=== PATIENT | female | born 1945 | race Caucasian/White ===

== ENCOUNTER 2019-11-03 18:10 | Emergency (ER) | payer MEDICARE, OTHER, MEDICAID, SELFPAY ==
[2019-11-03 18:20] VITALS: BP 123/45; RESP 20; TEMP 36.7; O2SAT 95; BMI 33.3
--- NOTE | 2019-11-03 18:52 | ED_ITS ---
Entered by Mora Lou, acting as scribe for Shayla Guzman MD, [facility] [place] HPI - Altered Mental Status General: Chief Complaint: Altered Mental Status Stated Complaint: FALL HIT HEAD Time Seen by Provider: 11/03/19 18:50 Source: patient Mode of arrival: EMS Limitations: no limitations History of Present Illness: HPI narrative: 73 yo Female presents to ED with complaint of pain in her left side. Per usp report, the patient fell and hit her head today. The patient is a nursing home resident of a [place] where she is a resident for dementia MD complaint: altered mental status and confusion Onset (ago): unknown Context: other (dementia/fall) Associated symptoms: Reports no associated symptoms Review of Systems General: Reports: 10 or more systems reviewed and unremarkable except in HPI and below Const: Denies: fever, chills or body aches Eyes: Denies: change in vision, blurry vision or blind spots ENMT: Denies: throat pain, enlarged tonsils, painful swallowing, hoarseness, mouth pain or swelling of lips/tongue Card: Denies: chest pain, palpitations, irregular heart rhythm, edema or swelling of feet/ankles Resp: Denies: shortness of breath, productive cough or non-productive cough GI: Reports: abdominal pain; Denies: nausea or vomiting : Denies: flank pain, difficulty urinating, painful urination, urinary frequency, urinary urgency or urinary hesitancy Musc: Denies: neck pain, back pain, extremity pain, extremity swelling or joint pain Skin/Breast: Denies: rash, itching or redness Neuro: Denies: headache, numbness in extremities or weakness in extremities Endo: Denies: excessive urination, excessive thirst or tired all the time Physical Exam Const: COMMON NORMALS: no apparent distress, average body habitus, oriented x3, no limitations, healthy appearing, alert and well nourished HENMT: COMMON NORMALS: normocephalic, head/scalp atraumatic and moist oral mucous membranes HEAD & SCALP: normocephalic, atraumatic and scalp tenderness (Knot behind left ear-4 cm) Eye: COMMON NORMALS: PERRL, EOMs intact bilaterally, conjunctivae normal and no scleral icterus CONJUNCTIVA: Yes conjunctivae normal PUPIL: Yes PERRL Neck/C-Spine: COMMON NORMALS: full ROM, supple, no meningeal signs, no JVD and no carotid bruits Chest: COMMONS NORMALS: inspection of chest normal and palpation of chest normal CHEST: Yes tenderness (left chest wall) Resp: COMMON NORMALS: normal respiratory effort, no retractions, no use of accessory muscles, clear to auscultation bilaterally and percussion normal AUSCULTATION: clear to auscultation bilaterally PERCUSSION: percussion normal Cardio: COMMON NORMALS: no JVD, regular rate, regular rhythm, S1 normal heart sound, S2 normal heart sound, no gallops, no clicks, no murmurs, no rub and peripheral pulses 2+ throughout RATE: regular rate RHYTHM: regular rhythm HEART SOUNDS: S1 normal, S2 normal and murmur PERIPHERAL PULSES: pulses 2+ throughout GI: COMMON NORMALS: normal to inspection, nondistended, normoactive bowel sounds, soft to palpation, non-tender, no hepatosplenomegaly, no masses and no bruits PALPATION: Yes soft, Yes tender (left abdomen-generalized) and Yes no hepatosplenomegaly : COMMON NORMALS: Yes no CVA tenderness BLADDER/KIDNEY EXAM: Yes no CVA tenderness Back/Pelvis: COMMON NORMALS: no CVA tenderness Extremity: COMMON NORMALS: normal to inspection, full ROM, normal capillary refill, no calf tenderness and no pedal edema Neuro: COMMON NORMALS: oriented x3 SENSORIUM/ORIENTATION: Yes alert MENINGEAL SIGNS: Yes no meningeal signs Skin: COMMON NORMALS: no rashes or lesions noted, no wounds, skin turgor normal, no jaundice, no petechiae and no mottling GENERAL SKIN EXAM: no rashes or lesions noted and turgor normal Course Vital Signs: Vital signs: Vital Signs Temperature 98.0 F 11/03/19 18:20 Pulse Rate 77 11/03/19 20:56 Respiratory Rate 18 11/03/19 20:56 Blood Pressure 123/45 11/03/19 20:56 Pulse Oximetry 95 11/03/19 20:56 MDM - Altered Mental Status MDM Narrative: Medical decision making narrative: 73-year-old female patient who is a resident of a local [facility]p presented to the emergency department following a fall. She hit her head but no loss of consciousness. Evaluation in the emergency department including head CT, C-spine CT, chest abdomen and pelvis CT and an x-ray of her left shoulder were all negative for acute fracture or dislocation. No intracranial hemorrhage. She is discharged home back to the usp with no new orders. Imaging Data^: CT C-Spine: Radiologist's impression: [address] [place] [address] CT Scan Report Signed Patient: Stephanie Sanchez #: [id number] : 1946Acct#:[id number] Age/Sex: 73 / FADM Date: 11/03/19 Loc: ERRoom/Bed: Attending Dr: Ordering Provider/Ordering MD: Shayla Guzman MD, [facility] [place] Date of Service: 11/03/19 Procedure(s): CT cervical spin wo con* [id number] Accession Number(s): [id number] Report Number: [id number] PROCEDURE INFORMATION: Exam: CT Cervical Spine Without Contrast Exam date and time: 11/03/2019 7:16 PM Age: 73 years old Clinical indication: Injury or trauma; Fall; Initial encounter; Blunt trauma TECHNIQUE: Imaging protocol: Computed tomography images of the cervical spine without contrast. Total DLP: 872.66 mGy-cm Radiation optimization: All CT scans at this facility use at least one of these dose optimization techniques: automated exposure control; mA and/or kV adjustment per patient size (includes targeted exams where dose is matched to clinical indication); or iterative reconstruction. COMPARISON: No relevant prior studies available. FINDINGS: Vertebrae: No acute fracture. Normal alignment. Prominent degenerative changes are noted with disc space narrowing and endplate osteophytes with sclerosis throughout the spine but greatest at C5-C6 and C6-C7. Degenerative anteriorlisthesis of C4 on C5 is noted. Discs/Spinal canal/Neural foramina: There is kavx-yj-yekjktfy narrowing of the central canal and foramina at C5-C6 and C6-C7 due to broad-based disc bulges and posterior endplate osteophytes. Soft tissues: Unremarkable. Lungs: Lung apices are normal. CT/CT cervical spin wo con* [id number] IMPRESSION: 1. No acute findings. 2. Degenerative changes are noted as above. Radiation Dose CTDIVOL = (mGy): DLP = 872.66 (mGy-cm) Dictated By:Veronica Zhang Signed By:Orion Zhang Date/Time:11/03/192033 DD/ 32 CT Head: Radiologist's impression: [address] [place] [address] CT Scan Report Signed Patient: Stephanie Sanchez #: [id number] : 5Acct#:[id number] Age/Sex: 73 / FADM Date: 11/03/19 Loc: ERRoom/Bed: Attending Dr: Ordering Provider/Ordering MD: Shayla Guzman MD, [facility] [place] Date of Service: 11/03/19 Procedure(s): CT head wo con* [id number] Accession Number(s): [id number] Report Number: [id number] PROCEDURE INFORMATION: Exam: CT Head Without Contrast Exam date and time: 11/03/2019 7:17 PM Age: 73 years old Clinical indication: Injury or trauma; Fall; Additional info: Fall, head injury TECHNIQUE: Imaging protocol: Computed tomography of the head without contrast. Total DLP: 812.19 mGy-cm Radiation optimization: All CT scans at this facility use at least one of these dose optimization techniques: automated exposure control; mA and/or kV adjustment per patient size (includes targeted exams where dose is matched to clinical indication); or iterative reconstruction. COMPARISON: No relevant prior studies available. FINDINGS: Brain: There is diffuse volume loss. Periventricular low density compatible with small vessel disease changes noted. There is no edema or mass effect. Ventricles: There is diffuse prominence of the ventricles. Mild normal pressure hydrocephalus cannot be excluded. Bones/joints: Unremarkable. No acute fracture. Sinuses: Visualized sinuses are unremarkable. No fluid levels. Mastoid air cells: Visualized mastoid air cells are well aerated. Soft tissues: Unremarkable. CT/CT head wo con* [id number] IMPRESSION: 1. There is diffuse prominence/enlargement of the ventricles. Mild normal pressure hydrocephalus cannot be excluded. 2. No acute intracranial abnormality. No acute fracture. Radiation Dose CTDIVOL = (mGy): DLP = 812.19 (mGy-cm) Dictated By:Veronica Zhagn Signed By:Orion Zhang Date/Time:11/03/192035 DD/ 34 CT Chest/Abdomen/Pelvis: Radiologist's impression: [address] [address] [address] Scan Report Signed Patient: Stephanie Sanchez #: [id number] : 1946Acct#:[id number] Age/Sex: 73 / FADM Date: 11/03/19 Loc: ERRoom/Bed: Attending Dr: Ordering Provider/Ordering MD: Shayla Guzman MD, [facility] [place] Date of Service: 11/03/19 Procedure(s): CT chest abd pel wo con Accession Number(s): [id number] Report Number: [id number] PROCEDURE INFORMATION: Exam: CT Chest Without Contrast Exam date and time: 11/03/2019 7:16 PM Age: 73 years old Clinical indication: Abdominal pain; Chest pain; Prior surgery; Surgery type: Hysto; Additional info: Fall, chest pain, abdominal pain TECHNIQUE: Imaging protocol: Computed tomography of the chest without contrast. Total DLP: 2203.23 mGy-cm Radiation optimization: All CT scans at this facility use at least one of these dose optimization techniques: automated exposure control; mA and/or kV adjustment per patient size (includes targeted exams where dose is matched to clinical indication); or iterative reconstruction. COMPARISON: CR Chest 1 [place] [id number] 04/19/2019 9:46 PM FINDINGS: Lungs: Mild ground-glass opacities noted in the lungs compatible with mild pneumonitis or vascular congestion with interstitial edema. No airspace consolidation. Pleural space: Unremarkable. No pneumothorax. No pleural effusion. Heart: Unremarkable. No cardiomegaly. No pericardial effusion. Aorta: Unremarkable. No aortic aneurysm. Lymph nodes: Unremarkable. No enlarged lymph nodes. Bones/joints: Moderate diffuse degenerative changes are noted in the spine. No acute fracture. Incidental lucent line through left rib on sagittal series 601 image 23 is identified. This is an artifact extends outside of the bone. Soft tissues: Unremarkable. IMPRESSION: 1. Mild pneumonitis versus vascular congestion with ground-glass opacity in the lungs. No pneumothorax. 2. Otherwise no acute abnormality. PROCEDURE INFORMATION: Exam: CT Abdomen And Pelvis Without Contrast Exam date and time: 11/03/2019 7:16 PM Age: 73 years old Clinical indication: Abdominal pain; Chest pain; Prior surgery; Surgery type: Hysto; Additional info: Fall, chest pain, abdominal pain TECHNIQUE: Imaging protocol: Computed tomography of the abdomen and pelvis without contrast. Total DLP: 2203.23 mGy-cm Radiation optimization: All CT scans at this facility use at least one of these dose optimization techniques: automated exposure control; mA and/or kV adjustment per patient size (includes targeted exams where dose is matched to clinical indication); or iterative reconstruction. COMPARISON: CR Chest 1 [place] [id number] 04/19/2019 9:46 PM FINDINGS: Liver: Unremarkable.No mass. Gallbladder and bile ducts: There is a large laminated gallstone. No duct dilatation. Pancreas: Normal. No ductal dilation. Spleen: Normal. No splenomegaly. Adrenals: Normal. No mass. Kidneys and ureters: There is no evidence of hydronephrosis. There is no evidence of renal calcifications. Stomach and bowel: Moderate diverticulosis is present in the distal colon. No bowel thickening, inflammatory changes, ileus or obstruction. Appendix: A normal appendix is identified. Intraperitoneal space: Unremarkable. No free air. No significant fluid collection. Vasculature: Unremarkable.No abdominal aortic aneurysm. Lymph nodes: Unremarkable.No enlarged lymph nodes. Bladder: Unremarkable as visualized. Reproductive: Unremarkable as visualized. Bones/joints: Osteopenia and diffuse moderate to severe degenerative changes are noted. There is a chronic anterior wedging fracture of L1. No acute fracture in the lumbar spine or pelvis. Soft tissues: Unremarkable. CT/CT chest abd pel wo con IMPRESSION: No acute abnormality. Old anterior wedging fracture of L1 and degenerative changes in the spine are noted. Incidental cholelithiasis. Radiation Dose CTDIVOL = (mGy): DLP = 2203.23~2203.23 (mGy-cm) Dictated By:Veronica Zhang Signed By:Orion Zhang Date/Time:11/03/192031 DD/ 30 Discharge Plan Discharge Patient Disposition: [facility] Not MCR w Plan Readm Clinical Impression: Mild closed head injury Qualifiers: Encounter type: initial encounter Qualified Code(s): S09.90XA - Unspecified injury of head, initial encounter Fall Qualifiers: Encounter type: initial encounter Qualified Code(s): W19.XXXA - Unspecified fall, initial encounter Condition: Stable Discharge Orders: Discharge Order (Routine); Ordered 11/03/19 Ordered By: Shayla Guzman Referrals: Maureen Caldwell, [facility] [Primary Care Provider] - 1-3 days Patient Instructions: Minor Head Injury (ED), Fall Prevention Activity Restrictions/Additional Instructions: Return for any new or worsening symptoms. Follow-up with your primary care provider within 3 days. Coding Level of Care Code ED Papier Mache Molder for Chg Fwd Exam Problem Focused The documentation recorded by the Dasha jules Carmen, accurately reflects the service I personally performed and the decisions made by Megan dubon Adegoke I, MD, [facility] Nov 03, 2019 18:10
--- NOTE | 2019-11-03 19:03 | CTR_ITS ---
PROCEDURE INFORMATION: Exam: CT Chest Without Contrast Exam date and time: 11/03/2019 7:16 PM Age: 73 years old Clinical indication: Abdominal pain; Chest pain; Prior surgery; Surgery type: Hysto; Additional info: Fall, chest pain, abdominal pain TECHNIQUE: Imaging protocol: Computed tomography of the chest without contrast. Total DLP: 2203.23 mGy-cm Radiation optimization: All CT scans at this facility use at least one of these dose optimization techniques: automated exposure control; mA and/or kV adjustment per patient size (includes targeted exams where dose is matched to clinical indication); or iterative reconstruction. COMPARISON: CR Chest 1 [place] [id number] 04/19/2019 9:46 PM FINDINGS: Lungs: Mild ground-glass opacities noted in the lungs compatible with mild pneumonitis or vascular congestion with interstitial edema. No airspace consolidation. Pleural space: Unremarkable. No pneumothorax. No pleural effusion. Heart: Unremarkable. No cardiomegaly. No pericardial effusion. Aorta: Unremarkable. No aortic aneurysm. Lymph nodes: Unremarkable. No enlarged lymph nodes. Bones/joints: Moderate diffuse degenerative changes are noted in the spine. No acute fracture. Incidental lucent line through left rib on sagittal series 601 image 23 is identified. This is an artifact extends outside of the bone. Soft tissues: Unremarkable. IMPRESSION: 1. Mild pneumonitis versus vascular congestion with ground-glass opacity in the lungs. No pneumothorax. 2. Otherwise no acute abnormality. PROCEDURE INFORMATION: Exam: CT Abdomen And Pelvis Without Contrast Exam date and time: 11/03/2019 7:16 PM Age: 73 years old Clinical indication: Abdominal pain; Chest pain; Prior surgery; Surgery type: Hysto; Additional info: Fall, chest pain, abdominal pain TECHNIQUE: Imaging protocol: Computed tomography of the abdomen and pelvis without contrast. Total DLP: 2203.23 mGy-cm Radiation optimization: All CT scans at this facility use at least one of these dose optimization techniques: automated exposure control; mA and/or kV adjustment per patient size (includes targeted exams where dose is matched to clinical indication); or iterative reconstruction. COMPARISON: CR Chest 1 [place] [id number] 04/19/2019 9:46 PM FINDINGS: Liver: Unremarkable.No mass. Gallbladder and bile ducts: There is a large laminated gallstone. No duct dilatation. Pancreas: Normal. No ductal dilation. Spleen: Normal. No splenomegaly. Adrenals: Normal. No mass. Kidneys and ureters: There is no evidence of hydronephrosis. There is no evidence of renal calcifications. Stomach and bowel: Moderate diverticulosis is present in the distal colon. No bowel thickening, inflammatory changes, ileus or obstruction. Appendix: A normal appendix is identified. Intraperitoneal space: Unremarkable. No free air. No significant fluid collection. Vasculature: Unremarkable.No abdominal aortic aneurysm. Lymph nodes: Unremarkable.No enlarged lymph nodes. Bladder: Unremarkable as visualized. Reproductive: Unremarkable as visualized. Bones/joints: Osteopenia and diffuse moderate to severe degenerative changes are noted. There is a chronic anterior wedging fracture of L1. No acute fracture in the lumbar spine or pelvis. Soft tissues: Unremarkable. CT/CT chest abd pel wo con IMPRESSION: No acute abnormality. Old anterior wedging fracture of L1 and degenerative changes in the spine are noted. Incidental cholelithiasis. Radiation Dose CTDIVOL = (mGy): DLP = 2203.23~2203.23 (mGy-cm)
--- NOTE | 2019-11-03 19:03 | CTR_ITS ---
PROCEDURE INFORMATION: Exam: CT Cervical Spine Without Contrast Exam date and time: 11/03/2019 7:16 PM Age: 73 years old Clinical indication: Injury or trauma; Fall; Initial encounter; Blunt trauma TECHNIQUE: Imaging protocol: Computed tomography images of the cervical spine without contrast. Total DLP: 872.66 mGy-cm Radiation optimization: All CT scans at this facility use at least one of these dose optimization techniques: automated exposure control; mA and/or kV adjustment per patient size (includes targeted exams where dose is matched to clinical indication); or iterative reconstruction. COMPARISON: No relevant prior studies available. FINDINGS: Vertebrae: No acute fracture. Normal alignment. Prominent degenerative changes are noted with disc space narrowing and endplate osteophytes with sclerosis throughout the spine but greatest at C5-C6 and C6-C7. Degenerative anteriorlisthesis of C4 on C5 is noted. Discs/Spinal canal/Neural foramina: There is oiyh-yt-xpjxsuze narrowing of the central canal and foramina at C5-C6 and C6-C7 due to broad-based disc bulges and posterior endplate osteophytes. Soft tissues: Unremarkable. Lungs: Lung apices are normal. CT/CT cervical spin wo con* [id number] IMPRESSION: 1. No acute findings. 2. Degenerative changes are noted as above. Radiation Dose CTDIVOL = (mGy): DLP = 872.66 (mGy-cm)
--- NOTE | 2019-11-03 19:03 | CTR_ITS ---
PROCEDURE INFORMATION: Exam: CT Head Without Contrast Exam date and time: 11/03/2019 7:17 PM Age: 73 years old Clinical indication: Injury or trauma; Fall; Additional info: Fall, head injury TECHNIQUE: Imaging protocol: Computed tomography of the head without contrast. Total DLP: 812.19 mGy-cm Radiation optimization: All CT scans at this facility use at least one of these dose optimization techniques: automated exposure control; mA and/or kV adjustment per patient size (includes targeted exams where dose is matched to clinical indication); or iterative reconstruction. COMPARISON: No relevant prior studies available. FINDINGS: Brain: There is diffuse volume loss. Periventricular low density compatible with small vessel disease changes noted. There is no edema or mass effect. Ventricles: There is diffuse prominence of the ventricles. Mild normal pressure hydrocephalus cannot be excluded. Bones/joints: Unremarkable. No acute fracture. Sinuses: Visualized sinuses are unremarkable. No fluid levels. Mastoid air cells: Visualized mastoid air cells are well aerated. Soft tissues: Unremarkable. CT/CT head wo con* [id number] IMPRESSION: 1. There is diffuse prominence/enlargement of the ventricles. Mild normal pressure hydrocephalus cannot be excluded. 2. No acute intracranial abnormality. No acute fracture. Radiation Dose CTDIVOL = (mGy): DLP = 812.19 (mGy-cm)
[2019-11-03 19:19] VITALS: BP 123/45; PULSE 78; RESP 24; O2SAT 96
[2019-11-03 20:56] VITALS: BP 123/45; PULSE 77; RESP 18; O2SAT 95
--- NOTE | 2019-11-03 21:38 | XR_ITS ---
WS: [id number] Left shoulder, 3 views, 11/03/2019 Clinical Data: fall Comparison: None. Findings: No fractures or dislocations are seen. The AC joint is normal. The adjacent left clavicle, left scapu la and ribs are normal. The soft tissues are unremarkable. There is a small calcification adjacent to the left greater tuberosity which could represent minimal calcific tendinitis or bursitis. There is a monitor lead on the chest wall. XR/XR shoulder LT min 2V* [id number] Impression: Negative for left shoulder fracture.
[2019-11-03 22:46] VITALS: BP 123/63; PULSE 70; RESP 20; O2SAT 96
[2019-11-03 22:48] VITALS: BP 126/63; PULSE 73; RESP 20; O2SAT 97
[2019-11-03] MEDS: acetaminophen 500 mg Tablet PO (23:16)
[2019-11-04 01:34] VITALS: BP 80/50; PULSE 67; RESP 17; O2SAT 98
[2019-11-04 03:54] VITALS: BP 127/59; PULSE 66; RESP 17; O2SAT 94
[2019-11-04 06:02] VITALS: BP 90/40; PULSE 75; RESP 18; O2SAT 98
== END 2019-11-04 08:03 ==
PROVIDERS: Emergency Provider Family Medicine; Family Provider Nurse Practitioner; PCP Nurse Practitioner
DX: S09.8XXA Other specified injuries of head, initial encounter (principal); W19.XXXA Unspecified fall, initial encounter; Y92.129 Unspecified place in nursing home as the place of occurrence of the external cause; F03.90 Unspecified dementia, unspecified severity, without behavioral disturbance, psychotic disturbance, mood disturbance, and anxiety
CPT/HCPCS: 70450; 71250; 72125; 73030; 74176; 99281

== ENCOUNTER 2020-01-22 14:36 | Emergency (ER) | payer MEDICARE, OTHER, MEDICAID, SELFPAY ==
[2020-01-22] VITALS (8 sets, daily range): BP systolic 97–122; BP diastolic 52–72; PULSE 60–77; RESP 16–18; TEMP 36.4; O2SAT 93–95; BMI 33.3
--- NOTE | 2020-01-22 14:51 | W.ED.GENADLT ---
HPI - General Adult General: Chief complaint: General Medical Stated complaint: HYPOTENSION Time Seen by Provider: 01/22/20 14:51 History of Present Illness: HPI narrative: 74-year-old female brought into the emergency room via EMS from a local skilled nursing. They are reporting she had a blood pressure with systolic less than 100 when they tested it at home the skilled nursing. She is on a diuretic but no other antihypertensives. She has baseline dementia and really cannot contribute much to her history when asked her questions. There are no other complaints given to us by EMS report. Review of Systems General: Reports: ROS unobtainable due to mental status PFSH ED PFSH: Social History Smoking and tobacco status: unknown if ever smoked Physical Exam Const: COMMON NORMALS: no apparent distress GENERAL APPEARANCE: cooperative and comfortable HENMT: COMMON NORMALS: normocephalic, head/scalp atraumatic, hearing grossly normal bilaterally, external ears normal, EAC's normal, TM's normal bilaterally, nasal mucous membranes and turbinates normal, moist oral mucous membranes and oropharynx normal HEAD & SCALP: normocephalic and atraumatic NOSE: nasal mucous membranes and turbinates normal EXTERNAL EAR: Yes external ears normal EXTERNAL AUDITORY CANAL: EAC's normal TYMPANIC MEMBRANE: TM's normal bilaterally Eye: COMMON NORMALS: PERRL, EOMs intact bilaterally, conjunctivae normal and no scleral icterus CONJUNCTIVA: Yes conjunctivae normal PUPIL: Yes PERRL Neck/C-Spine: COMMON NORMALS: full ROM, no lymphadenopathy, supple and no JVD Lymph: LYMPHATIC: no lymphadenopathy noted and no lymphedema noted Resp: COMMON NORMALS: normal respiratory effort, no retractions, no use of accessory muscles and clear to auscultation bilaterally AUSCULTATION: clear to auscultation bilaterally Cardio: COMMON NORMALS: no JVD, regular rate, regular rhythm and no murmurs RATE: regular rate RHYTHM: regular rhythm GI: COMMON NORMALS: soft to palpation and no hepatosplenomegaly AUSCULTATION: Yes normoactive bowel sounds PALPATION: Yes soft, No tender, No guarding and Yes no hepatosplenomegaly Extremity: COMMON NORMALS: normal to inspection, normal capillary refill, no clubbing, cyanosis or edema, no calf tenderness and no pedal edema Skin: COMMON NORMALS: no rashes or lesions noted GENERAL SKIN EXAM: no rashes or lesions noted Course Vital Signs: Vital signs: Vital Signs Temperature 97.5 F L 01/22/20 14:36 Pulse Rate 62 01/22/20 17:04 Respiratory Rate 18 01/22/20 17:04 Blood Pressure 122/53 01/22/20 17:04 Pulse Oximetry 95 01/22/20 17:04 MDM - General Adult MDM Narrative: Medical decision making narrative: Labs unremarkable patient appears fine blood pressure is improved we will go ahead and have her hold her Lasix and her potassium. Return to the skilled nursing follow-up with primary care provider they can decide when to restart the Lasix and potassium if needed. Lab Data: Attestation: I reviewed the patient's lab results. Labs: Lab Results 01/22/20 01/22/20 Range/Units 15:21 15:21 WBC 8.8 (4.0-10.0) 10^3/ uL RBC 4.41 (4.1-5.3) 10^6/u L Hgb 13.9 (11.5-15.3) g/dL Hct 43.1 (37.0-47.0) % MCV 97.7 (81-99) fL MCH 31.5 (28.0-34.0) pg MCHC 32.3 (30.0-36.0) g/dL RDW 13.1 (12.1-15.1) % Plt Count 200 (130-400) 10^3/c mm MPV 11.3 H (7.4-10.4) fL Neut % (Auto) 75.7 % Lymph % (Auto) 13.6 % [place] % (Auto) 8.1 % Eos % (Auto) 1.7 % Baso % (Auto) 0.6 % Neut # (Auto) 6.6 (1.8-7.7) 10^3/u L Lymph # (Auto) 1.2 (0.8-4.8) 10^3/u L [place] # (Auto) 0.7 (0.2-0.9) 10^3/u L Eos # (Auto) 0.2 (0.0-0.8) 10^3/u L Baso # (Auto) 0.1 (0.0-0.1) 10^3/u L Nucleated RBC % (a uto) 0 % Nucleated RBCs # 0.0 /100WBC Sodium 141 (136-145) mmol/L Potassium 3.9 (3.5-5.1) mmol/L Chloride 102 (98-107) mmol/L Carbon Dioxide 32 H (22-29) mmol/L Anion Gap 10.9 (5-19) BUN 12 (8-23) mg/dL Creatinine 0.8 (0.5-0.9) mg/dL Glucose 120 H (65-115) mg/dL Calculated Osmolal ity 289 (285-295) mOsm/k g Calcium 9.5 (8.5-10.5) mg/dL Discharge Plan Discharge Patient Disposition: Home, Self-Care Clinical Impression: Hypotension Condition: Stable Prescriptions: Held furosemide 40 mg tablet 40 mg PO DAILY RF: 0 Hold Instructions: Resume on 10/06/29. Hold until restarted by attending potassium chloride 20 mEq tablet,ER particles/crystals 20 meq PO BID RF: 0 Hold Instructions: Resume on 10/06/29. Hold until restarted by attending No Action docusate sodium 50 mg/5 mL Liquid 50 mg PO BID RF: 0 risperidone 1 mg/mL solution 1 mg PO BID RF: 0 mirtazapine 15 mg tablet,disintegrating 15 mg PO DAILY RF: 0 ketoconazole 2 % cream See Rx Instructions .ROUTE .COMPLEX RF: 0 fluticasone propionate 50 mcg/actuation [place],Suspension 1 spray INTRANASAL DAILY RF: 0 loratadine 10 mg Tablet 10 mg PO DAILY RF: 0 Discharge Orders: Discharge Order (Routine); Ordered 01/22/20 Ordered By: Codey Snyder Referrals: Maureen Caldwell FNP [Primary Care Provider] - Activity Restrictions/Additional Instructions: Hold potassium and Lasix Coding Level of Care Code ED Insulation Professional for Chg Fwd Exam Comprehensive
--- NOTE | 2020-01-22 15:08 | ECG_ITS ---
Measurements Intervals [place] Rate: 72 P: [place]: 0 QRS: 77 QRSD: 88 T: 73 QT: 395 QTc: 435 ATRIAL FIBRILLATION WITH ABERRANT CONDUCTION OR VENTRICULAR PREMATURE COMPLEXES ABNORMAL RHYTHM ECG Compared to ECG 04/20/2019 03:03:39 Ventricular premature complex(es) now present Aberrant conduction of supraventricular beat(s) now present Atrial flutter no longer present Myocardial infarct finding no longer present Electronically Signed On 01-22-2020 18:02:45 CDT by Neena Mckeon M.D. [email or web address]
--- NOTE | 2020-01-22 15:22 | PC.NURSE ---
Lab at bedside to draw blood
[2020-01-22 15:52] LABS: Basophils # 0.1 10^3/uL (0.0-0.1); Basophils % 0.6 %; Eosinophils # 0.2 10^3/uL (0.0-0.8); Eosinophils % 1.7 %; Hematocrit 43.1 % (37.0-47.0); Hemoglobin 13.9 g/dL (11.5-15.3); Lymphocytes # 1.2 10^3/uL (0.8-4.8); Lymphocytes % 13.6 %; Mean Corpuscular HGB Conc 32.3 g/dL (30.0-36.0); Mean Corpuscular Hemoglobin 31.5 pg (28.0-34.0); Mean Corpuscular Volume 97.7 fL (81-99); Mean Platelet Volume 11.3 fL (7.4-10.4); Monocytes # 0.7 10^3/uL (0.2-0.9); Monocytes % 8.1 %; Neutrophils # 6.6 10^3/uL (1.8-7.7); Neutrophils % 75.7 %; Nucleated Red Blood Cells % 0 %; Platelet Count 200 10^3/cmm (130-400); Red Blood Count 4.41 10^6/uL (4.1-5.3); Red Cell Distribution Width 13.1 % (12.1-15.1); White Blood Count 8.8 10^3/uL (4.0-10.0)
[2020-01-22 16:14] LABS: Anion Gap 10.9 (5-19); Blood Urea Nitrogen 12 mg/dL (8-23); Calcium 9.5 mg/dL (8.5-10.5); Carbon Dioxide 32 mmol/L (22-29); Chloride 102 mmol/L (98-107); Glucose 120 mg/dL (65-115); Osmolality Calculated 289 mOsm/kg (285-295); Potassium 3.9 mmol/L (3.5-5.1); Sodium 141 mmol/L (136-145)
== END 2020-01-22 18:20 | disposition home or self-care (01) ==
PROVIDERS: Emergency Provider Family Medicine; Family Provider Nurse Practitioner; PCP Nurse Practitioner
DX: I95.9 Hypotension, unspecified (principal)
CPT/HCPCS: 12345; 36415; 80048; 85025; 93005; 99283

== ENCOUNTER 2020-11-17 13:31 | Outpatient (CLI) | payer MEDICARE, OTHER, MEDICAID, SELFPAY ==
[2020-11-17 14:02] LABS: Add Urine Microscopic? NO
[2020-11-17 14:24] LABS: Bilirubin Urine Neg (Negative); Blood Urine Neg (Negative); Glucose Urine UA Norm (Normal); Ketones Urine Negative (Negative); Leukocyte Esterase Urine Negative (Negative); Nitrate Urine Negative (Negative); Protein Urine Neg (Negative); Specific Gravity, Urine 1.015 (1.005-1.030); Urine Appearance Clear (CLEAR); Urine Color Yellow (Yellow); Urobilinogen Urine 1 mg/dL (Negative); pH Urine 6.5 (5-7)
== END 2020-11-17 13:32 | disposition home or self-care (01) ==
LOC: LAB 13:42
PROVIDERS: PCP Internal Medicine; Visit Provider Internal Medicine
DX: R30.0 Dysuria (principal); R32 Unspecified urinary incontinence
CPT/HCPCS: 81003

== ENCOUNTER 2021-06-28 17:53 | Outpatient (CLI) | payer MEDICARE, OTHER, MEDICAID, SELFPAY ==
[2021-06-28 18:57] LABS: Anion Gap 8.2 (5-19); Blood Urea Nitrogen 15 mg/dL (8-23); Calcium 8.4 mg/dL (8.5-10.5); Carbon Dioxide 33 mmol/L (22-29); Chloride 104 mmol/L (98-107); Glucose 99 mg/dL (65-115); Osmolality Calculated 293 mOsm/kg (285-295); Potassium 4.2 mmol/L (3.5-5.1); Sodium 141 mmol/L (136-145)
== END 2021-06-28 17:54 | disposition home or self-care (01) ==
PROVIDERS: PCP Internal Medicine; Visit Provider Internal Medicine
DX: Z13.228 Encounter for screening for other metabolic disorders (principal)
CPT/HCPCS: 80048

== ENCOUNTER 2021-12-18 14:54 | Inpatient (IN) | payer MEDICARE, OTHER, MEDICAID, SELFPAY ==
[2021-12-18] VITALS (35 sets, daily range): BP systolic 78–115; BP diastolic 50–71; PULSE 82–132; RESP 16–35; TEMP 37–37.8; O2SAT 94–99; BMI 18.3
--- NOTE | 2021-12-18 14:55 | ED_ITS ---
HPI - COVID General: Chief Complaint: Shortness of Breath/Dyspnea Stated Complaint: RESP DISTRESS COVID CONTACT Time Seen by Provider: 12/18/21 14:55 Source: patient Mode of arrival: ambulatory Limitations: no limitations History of Present Illness: 76-year-old female presents emergency room via EMS with hypoxic episode at the [facility]. Reported sats around 80% on room air was given 5 L by nasal cannula and is now improved into the 90s. She is nonresponsive. Evidently she was combative at the [facility] and they gave her Ativan now she is unarousable. Her breathing is still good. She does have a history of dementia and is on the dementia jules at [place]. There is a report of a known post Covid positive exposure but she has not tested positive yet. MD complaint: known COVID positive Prior covid testing: no COVID 19 other sytmptoms: positive requiring oxygen and respiratory distress Onset (ago): hour(s) Severity: severe Pertinent comorbid conditions: other (Dementia) Treatment prior to arrival: none COVID Results: SARS-CoV-2 (PCR) Not detected (NOT DETECT) 12/18/21 15:28 12/18/21 Coronavirus Type 229E (PCR) Not detected (NOT DETECT) 12/18/21 15:28 12/18/21 Review of Systems General: Reports: ROS unobtainable due to mental status PFS ED PFSH: Medical History Dementia Social History Smoking and tobacco status: unknown if ever smoked Physical Exam Const: GENERAL APPEARANCE: lethargic NUTRITIONAL APPEARANCE: underweight ORIENTATION/CONSCIOUSNESS: Yes lethargic HENMT: COMMON NORMALS: normocephalic, atraumatic and hearing grossly normal bi laterally HEAD & SCALP: normocephalic and atraumatic Neck/C-Spine: COMMON NORMALS: no JVD Resp: COMMON NORMALS: normal respiratory effort, No retractions and No use of accessory muscles AUSCULTATION: crackles Cardio: COMMON NORMALS: no JVD, regular rate, regular rhythm and No murmurs present (Cardio) RATE: regular rate RHYTHM: regular rhythm GI: COMMON NORMALS: Soft to palpation and No hepatosplenomegaly present AUSCULTATION: Yes normoactive bowel sounds PALPATION: Yes Soft to palpation, No Tenderness to palpation present (GI), No Guarding due to palpation present (GI) and Yes No hepatosplenomegaly present Extremity: COMMON NORMALS: normal to inspection, capillary refill normal, no clubbing, cyanosis or edema, no calf tenderness and no pedal edema Neuro: SENSORIUM/ORIENTATION: Yes lethargic Skin: COMMON NORMALS: no rashes or lesions noted GENERAL SKIN EXAM: no rashes or lesions noted Course Vital Signs: Vital signs: Vital Signs Temperature 98.6 F 12/19/21 04:00 Pulse Rate 72 12/19/21 04:00 Respiratory Rate 17 12/19/21 04:00 Blood Pressure 94/60 12/19/21 04:00 Pulse Oximetry 95 12/19/21 04:00 [facility] - COVID Medical Decision Making Multifocal pneumonia with no PE on this CTA scan. COVID is still pending her admit and treat for pneumonia patient does have a fever cultures are done started vancomycin and aztreonam since she is allergic to penicillins. Discussed with hospitalist and with family family has a patient is a Do Not Recussitate. They do wish to initiate treatment to see if she responds. If not improving are likely to consider changing to hospice. Medical Records I reviewed the patient's medical records. Lab Data I reviewed the patient's lab results. : 12/18/21 15:12 12/18/21 15:12 Radiology Impressions Chest CTA 12/18/21 16:23 IMPRESSION: 1. Significantly limited exam. 2. Bronchitis and multifocal pneumonia. 3. No gross evidence of large or central pulmonary emboli. Laboratory Results WBC 13.1 10^3/uL (4.0-10.0) H 12/18/21 15:12 RBC 4.05 10^6/uL (4.1-5.3) L 12/18/21 15:12 Hgb 13.1 g/dL (11.5-15.3) 12/18/21 15:12 Hct 43.4 % (37.0-47.0) 12/18/21 15:12 MCV 107.2 fl (81-99) H 12/18/21 15:12 MCH 32.3 pg (28.0-34.0) 12/18/21 15:12 MCHC 30.2 g/dL (30.0-36.0) 12/18/21 15:12 RDW 12.9 % (12.1-15.1) 12/18/21 15:12 Plt Count 210 10^3/cmm (130-400) 12/18/21 15:12 MPV 12.9 fL (7.4-10.4) H 12/18/21 15:12 Neut % (Auto) 83.6 % 12/18/21 15:12 Lymph % (Auto) 8.7 % 12/18/21 15:12 [place] % (Auto) 5.9 % 12/18/21 15:12 Eos % (Auto) 0.2 % 12/18/21 15:12 Baso % (Auto) 0.5 % 12/18/21 15:12 Neut # (Auto) 10.93 10^3/uL (1.8-7.7) H 12/18/21 15:12 Lymph # (Auto) 1.1 10^3/uL (0.8-4.8) 12/18/21 15:12 [place] # (Auto) 0.8 10^3/uL (0.2-0.9) 12/18/21 15:12 Eos # (Auto) 0.0 10^3/uL (0.0-0.8) 12/18/21 15:12 Baso # (Auto) 0.1 10^3/uL (0.0-0.1) 12/18/21 15:12 Nucleated RBC % (auto) 0 % 12/18/21 15: Nucleated RBCs # 0.0 /100WBC 12/18/21 15:12 D-Dimer 13.35 ug/mIFEU (0-0.59) H 12/18/21 15:12 Specimen Type Arterial 12/18/21 17:16 Sample Site Radial, left 12/18/21 17:16 ABG pH 7.39 (7.35-7.45) 12/18/21 17:16 ABG pCO2 52.9 mmHg (35-45) H 12/18/21 17:16 ABG pO2 144.0 mmHg (80.0-100.0) H 12/18/21 17:16 ABG HCO3 32.3 mmol/L (22-26) H 12/18/21 17:16 ABG Base Excess 6.2 mmol/L (-2.0-2.0) H 12/18/21 17:16 Edilberto Test Pos 12/18/21 17:16 Hematocrit 34.3 % (37-47) L 12/18/21 17:16 O2 Delivery Device Nc 12/18/21 17:16 O2 Liters/Min 3.5 % 12/18/21 17:16 Chief Dog License Inspector ID Cak 12/18/21 17:16 Sodium 141 mmol/L (136-145) 12/18/21 15:12 Potassium 4.1 mmol/L (3.5-5.1) 12/18/21 15:12 Chloride 107 mmol/L (98-107) 12/18/21 15:12 Carbon Dioxide 23 mmol/L (22-29) 12/18/21 15:12 Anion Gap 15.1 (5-19) 12/18/21 15:12 BUN 14 mg/dL (8-23) 12/18/21 15:12 Creatinine 0.5 mg/dL (0.5-0.9) 12/18/21 15:12 GFR Calculation Not Reportable 12/18/21 15:12 Glucose 105 mg/dL (65-115) 12/18/21 15:12 Calculated Osmolality 293 mOsm/kg (285-295) 12/18/21 15:12 Lactic Acid 1.8 mmol/L (0.5-2.2) 12/18/21 15:12 Calcium 8.7 mg/dL (8.5-10.5) 12/18/21 15:12 Total Bilirubin 0.4 mg/dL (0.15-1.2) 12/18/21 15:12 AST 36 U/L (0-32) H 12/18/21 15:12 ALT 40 U/L (0-33) H 12/18/21 15:12 Alkaline Phosphatase 259 IU/L (35-105) H 12/18/21 15:12 C-Reactive Protein 160.0 mg/L (0.0-4.9) H 12/18/21 15:12 Total Protein 6.4 g/dL (6.6-8.7) L 12/18/21 15:12 Albumin 2.6 g/dL (3.5-5.2) L 12/18/21 15:12 Globulin 3.8 g/dL (1.3-4.6) 12/18/21 15:12 Procalcitonin 0.26 ng/mL (0-0.5) 12/18/21 15:12 Valproic Acid 12.0 ug/mL (50-100) L 12/18/21 15:12 Coronavirus 229E (PCR) Not detected (NOT DETECT) 12/18/21 15:28 SARS-CoV-2 (PCR) Not detected (NOT DETECT) 12/18/21 15:28 SARS-CoV-2 (PCR) Not detected (NOT DETECT) 12/18/21 15:28 12/18/21 Coronavirus Type 229E (PCR) Not detected (NOT DETECT) 12/18/21 15:28 12/18/21 Discharge Plan Discharge Patient Disposition: Admitted As Inpatient Admit Provider: Darshan Reyes Clinical Impression: Pneumonia, D-dimer, elevated, Dementia, Acute encephalopathy Condition: Stable Coding Level of Care Code ED Retail Loss Prevention Specialist for Chg Fwd Exam Comprehensive
[2021-12-18 15:31] LABS: Basophils # 0.1 10^3/uL (0.0-0.1); Basophils % 0.5 %; Eosinophils % 0.2 %; Hematocrit 43.4 % (37.0-47.0); Hemoglobin 13.1 g/dL (11.5-15.3); Lymphocytes # 1.1 10^3/uL (0.8-4.8); Lymphocytes % 8.7 %; Mean Corpuscular HGB Conc 30.2 g/dL (30.0-36.0); Mean Corpuscular Hemoglobin 32.3 pg (28.0-34.0); Mean Corpuscular Volume 107.2 fl (81-99); Mean Platelet Volume 12.9 fL (7.4-10.4); Monocytes # 0.8 10^3/uL (0.2-0.9); Monocytes % 5.9 %; Neutrophils # 10.93 10^3/uL (1.8-7.7); Neutrophils % 83.6 %; Nucleated Red Blood Cells % 0 %; Platelet Count 210 10^3/cmm (130-400); Red Blood Count 4.05 10^6/uL (4.1-5.3); Red Cell Distribution Width 12.9 % (12.1-15.1); White Blood Count 13.1 10^3/uL (4.0-10.0)
[2021-12-18 15:53] LABS: Lactic Sepsis W/Reflex 1.8 mmol/L (0.5-2.2)
[2021-12-18 15:55] LABS: Alanine Aminotransferase 40 U/L (0-33); Albumin Level 2.6 g/dL (3.5-5.2); Alkaline Phosphatase 259 IU/L (35-105); Aspartate Amino Transferase 36 U/L (0-32); Blood Urea Nitrogen 14 mg/dL (8-23); Calcium 8.7 mg/dL (8.5-10.5); Carbon Dioxide 23 mmol/L (22-29); Chloride 107 mmol/L (98-107); Globulin 3.8 g/dL (1.3-4.6); Glucose 105 mg/dL (65-115); Osmolality Calculated 293 mOsm/kg (285-295); Sodium 141 mmol/L (136-145); Total Bilirubin 0.4 mg/dL (0.15-1.2); Total Protein 6.4 g/dL (6.6-8.7)
[2021-12-18 15:56] LABS: Anion Gap 15.1 (5-19); Potassium 4.1 mmol/L (3.5-5.1)
[2021-12-18 16:02] LABS: Procalcitonin 0.26 ng/mL (0-0.5)
--- NOTE | 2021-12-18 16:17 | PC.NURSE ---
PT resting in bed with eyes closed. call light within reach.
[2021-12-18 16:19] LABS: D Dimer 13.35 ug/mIFEU (0-0.59)
--- NOTE | 2021-12-18 16:23 | CTR_ITS ---
PROCEDURE INFORMATION: Exam: CTA Chest With Contrast Exam date and time: 12/18/2021 4:23 PM Age: 76 years old Clinical indication: Abnormal findings; Abnormal diagnostic tests; Elevated d-dimer; Shortness of breath; Additional info: Elevated d dimer/ hypoxia TECHNIQUE: Imaging protocol: Computed tomographic angiography of the chest with contrast. 3D rendering (Not supervised by radiologist): MIP and/or 3D reconstructed images were created by the technologist. Radiation optimization: All CT scans at this facility use at least one of these dose optimization techniques: automated exposure control; mA and/or kV adjustment per patient size (includes targeted exams where dose is matched to clinical indication); or iterative reconstruction. Contrast material: OMNI 300; Contrast volume: 80 ml; Contrast route: INTRAVENOUS (IV); COMPARISON: CT chest abd pel wo con 11/03/2019 8:25 PM RADIATION DOSE METRICS: Total DLP (mGy-cm): 515.7 FINDINGS: Limitations: Study significantly limited due to streak artifact created by the patient being scanned with the arms at the sides. Study is significantly limited by patient respiratory motion. Pulmonary arteries: Allowing for respiratory motion and streak artifact no definite pulmonary emboli are demonstrated on this examination. Aorta: There is no thoracic aortic aneurysm or dissection. Lungs: There are scattered patchy rounded consolidations in both lungs worrisome for multifocal pneumonia. There is also suggestion of bronchial wall thickening which could represent bronchitis. Pulmonary findings are limited on this exam due to patient respiratory motion. There is some mucous plugging in bronchi in both lower lobes. There is some partial atelectasis in the left lower lobe. Pleural spaces: Unremarkable. No pneumothorax. No pleural effusion. Heart: Unremarkable. No cardiomegaly. No pericardial effusion. Lymph nodes: There is mild hilar adenopathy. Bones/joints: Unremarkable. No acute fracture. Soft tissues: Unremarkable. CT/CT angio chest PE protcl [id number] IMPRESSION: 1. Significantly limited exam. 2. Bronchitis and multifocal pneumonia. 3. No gross evidence of large or central pulmonary emboli.
[2021-12-18 16:27] LABS: Slide Review Slide Review Perform
--- NOTE | 2021-12-18 16:38 | PC.PHAR ---
PT UNABLE TO VERIFY MEDS. PT FROM [facility]- CALLED AND SPOKE TO HER NURSE MALISSA TO VERIFY CURRENT MEDICATIONS AND LAST GIVEN.
[2021-12-18] MEDS: sodium chloride 0.9% 500 ML 999 ML IV ×2 (16:48→18:11)
[2021-12-18] MEDS: iohexol 350 mg/mL 100 mL Btl IV (17:12)
[2021-12-18 17:28] LABS: ABG PCO2 52.9 mmHg (35-45); ABG PH Result 7.39 (7.35-7.45); Arterial Blood Gas Hematocrit 34.3 % (37-47); Base Excess ABG 6.2 mmol/L (-2.0-2.0); Blood Gas Allen Test Pos; Blood Gas LPM 3.5 %; Blood Gas Operator Identificat CAK; Blood Gas Sample Site Radial, left; Blood Gas Sample Type Arterial; HCO3 ABG 32.3 mmol/L (22-26); Oxygen Device NC
[2021-12-18] MEDS: vancomycin 1,000 MG in sodium chloride 0.9% 250 ML 250 MG IV (18:10)
[2021-12-18] MEDS: hydrocortisone 100 mg/2 mL SDV 50 MG IVP (19:01)
--- NOTE | 2021-12-18 19:01 | PC.NURSE ---
patient report received patient on stretcher, respirations even equal and unlabored. IVF infusing with out complications.
[2021-12-18] MEDS: aztreonam 2,000 MG in sodium chloride 0.9% (plus) 100 ML 200 MG IV (19:13)
--- NOTE | 2021-12-18 19:57 | P.HP_ITS ---
Providers/Chief Complaint Admitting Physician: Darshan Reyes MD Primary Care Provider: Issa Clifton DO Chief Complaint: RESP DISTRESS COVID CONTACT History of Present Illness 76-year-old lady with history of advanced dementia, [facility] resident, requiring full assistance with IADLs, recently with progression, several falls about a month ago, more recently 1 witnessed fall without head injury last week Sat, but was noted somewhat confused and weak since then. Was noted to have low oxygen saturation today down to 84% this morning, she was started on nasal cannula oxygen support, after changing to concentrated saturation did drop to 94%. EMS was called, on transfer previous oxygen at night again desaturated to 84%. Her neighbors [facility] in the next room over tested positive for COVID-19 last week. She was tested with rapid test today which was negative. In the ER she is confused, occasionally moving spontaneously, but otherwise not interacting, answering questions or following commands. Unable to provide history or could speak with exam. Per discussion with nursing staff she otherwise has been doing well including last night. Due to pocketing food in the past she is on pur?ed diet but with thin liquids, without any episodes of aspiration noted recently. Recent medication dose changes include decrease in Depakote dose down to 125 mg twice a day from 250 mg twice a day which was changed on 12/04, and today was going to be her last day of this medication. She does not have history of seizure, sounds like this medication was for behavioral issues with advanced dementia. Her fentanyl dose also had been increased to 75 mcg patch every 3 days from 50 mcg several days ago. This is used for chronic left upper quadrant pain she has had since her usual which she had reportedly declined in the past while still able to make decisions. In the ER she was initially hypotensive, BP as low as 78/50, but appears to responded to fluid challenge with 2 L of NS boluses. With sinus tachycardia 110-120. Leukocytosis 13.1. Low-grade fever, 100 Fahrenheit. Noted to have elevated D-dimer 13.35, without gross evidence of large central pulmonary emboli on CTA. CT notes bronchitis and multifocal pneumonia. She was started on aztreonam and vancomycin. COVID-19 PCR is pending. Review of Systems 2 General: Reports: ROS unobtainable due to medical condition Medications/Allergies Home Medications Medication Instructions Recorded Confirmed Last Taken Type docusate sodium 50 mg/5 mL oral 50 mg PO BID 01/22/20 12/18/21 01/22/20 History liquid fluticasone propionate 50 1 spray INTRANASAL DAILY 01/22/20 12/18/21 12/18/21 07:00 History mcg/actuation nasal spray,suspension ketoconazole 2 % topical cream See Rx Instructions .ROUTE .COMPLEX 01/22/20 12/18/21 01/22/20 History acetaminophen 325 mg tablet 325 mg PO QID PRN 12/18/21 12/18/21 Unknown History (Tylenol) citalopram 10 mg tablet 10 mg PO DAILY 12/18/21 12/18/21 12/18/21 07:00 History divalproex 125 mg capsule,delayed 125 mg PO DAILY 12/18/21 12/18/21 12/18/21 07:00 History release sprinkle fentanyl 75 mcg/hr transdermal 1 patch TRANSDERMAL Q3D 12/18/21 12/18/21 12/17/21 History patch food supplemt, lactose-reduced 1 ea PO TID 12/18/21 12/18/21 12/18/21 13:32 History hydrocodone 5 mg-acetaminophen 325 1 tab PO Q6H 12/18/21 12/18/21 12/16/21 History mg tablet lorazepam 0.5 mg tablet 0.5 mg PO Q6H 12/18/21 12/18/21 12/18/21 13:30 History vvxggrrb-tlbavhgcf-iahesycf 3.5 2 drp OPHTHALMIC (EYE) TID 12/18/21 12/18/21 12/18/21 13:30 History mg/mL-10,000 unit/mL-0.1% eye drops polyethylene glycol 3350 17 17 g PO DAILY 12/18/21 12/18/21 Unknown History gram/dose oral powder (Miralax) sodium phosphates 19 gram-[address] DAILY PRN 12/18/21 12/18/21 Unknown H istory gram/118 mL enema (Fleet Enema) Allergies Allergy/AdvReac Type Severity Reaction Status Date / Time Penicillins Allergy Unknown Verified 12/18/21 16:38 PFSH Acute PFSH: Medical History (Updated 12/18/21 @ 20:29 by Ian Mondragon MD) Dementia Social History Smoking and tobacco status: unknown if ever smoked Vitals/I&O/Wt Last Vital Signs Temp 100.0 F H 12/18/21 15:25 Pulse 109 H 12/18/21 17:05 Resp 30 H 12/18/21 17:05 BP 107/62 12/18/21 18:45 Pulse Ox 98 12/18/21 18:45 Weight last 48 hrs Weight 49.895 kg Physical Exam Const: COMMON NORMALS: negative for patient oriented x3 ORIENTATION/CONSCIOUSNESS: Yes confused HENMT: COMMON NORMALS: oropharynx normal Neck/C-Spine: COMMON NORMALS: no JVD Resp: COMMON NORMALS: normal respiratory effort and clear to auscultation b ilaterally AUSCULTATION: clear to auscultation bilaterally Cardio: COMMON NORMALS: no JVD, regular rhythm, S1 normal heart sound present, S2 normal heart sound present and No murmurs present (Cardio) RATE: tachycardic RHYTHM: regular rhythm HEART SOUNDS: S1 normal heart sound present and S2 normal heart sound present GI: COMMON NORMALS: Normal to inspection, nondistended, normoactive bowel sounds present, Soft to palpation and non-tender PALPATION: Yes Soft to palpation Extremity: COMMON NORMALS: no joint enlargement and no pedal edema Neuro: COMMON NORMALS: moves all extremities; negative for patient oriented x3 OTHER: Mild clonus BL Skin: COMMON NORMALS: no rashes or lesions noted GENERAL SKIN EXAM: no jemima hes or lesions noted Data : 12/18/21 15:12 12/18/21 15:12 Micro: Microbiology 12/18/21 16:12 Blood Culture - Preliminary Blood SPECIMEN COLLECTED 12/18/21 16:10 Blood Culture - Preliminary Blood SPECIMEN COLLECTED A&P Assessment and plan (1) Pneumonia: Multifocal pneumonia neighbor recently tested positive for COVID-19. Follow-up COVID-19 PCR. For now empiric coverage continue with antibiotics due to sepsis. Follow-up blood cultures. Procalcitonin is not elevated, once clinically improving consider de-escalation of antibiotics. Continue oxygen support, de-escalate as tolerating. Status: Acute (2) Sepsis: Sepsis with leukocytosis, sinus tachycardia. Also has low-grade fever but only up to 100 Fahrenheit. Source is pulmonary. Multifocal pneumonia. Possible COVID-19 pneumonia. Continue prophylaxis above. Follow-up blood culture. Initially hypotensive, responded to fluid challenge with improvement in blood pressures. Not a candidate for aggressive interventions in accordance with goals of care. It was relayed to me that per discussion with her medical care including antibiotics trial was desired. Discussed with her . Status: Acute (3) Acute encephalopathy: Acute metabolic encephalopathy secondary to sepsis, pneumonia, hypoxia. Treat underlying conditions as above. Reorient. For now continue Depakote if will be able to take. Will check Depakote level with recent medication changes. Continue fentanyl patch for now. Status: Acute (4) Drug dose changed: Dose Depakote was changed on 12/04, decreased from 250 mg twice a day to 125 mg twice a day and today was going to be her last day of this medication. This is being weaned off. No history of seizure, reportedly used for behavioral issues with advanced dementia. Another medication dose check with dose increased from 50 mcg patch every 3 days to 75 mcg patch every 3 days. Status: Acute (5) Hypotension: Hypertension anemia continue gentle IV hydration for now, reassess volume s tatus. DC IV fluids once resumes oral intake. Status: Acute (6) Hypoxia: As above. Status: Acute (7) D-dimer, elevated: Status: Acute Plan Advanced dementia: At baseline requires assistance with all IADLs. Attestations Medical Necessity Statement*: Admission of over 2 midnights is anticipated versus management of sepsis, multifocal pneumonia, hypoxia, acute encephalopathy. Coding Level of Care Code Acute [employer] Salesperson for Tyrell Moore Diagnoses Pneumonia J18.9 Drug dose changed Z79.899 Acute encephalopathy G93.40 Hypotension I95.9 Sepsis A41.9 Hypoxia R09.02 D-dimer, elevated R79.89
[2021-12-18] MEDS: sodium chloride 0.9% 1,000 ML 100 ML IV (21:34)
[2021-12-18 21:40] LABS: Adenovirus Not Detected (NOT DETECT); Chlamydia Pneumoniae Not Detected (NOT DETECT); Coronavirus 229E,HKU1,NL63,OC4 Not Detected (NOT DETECT); Human Metapneumovirus Not Detected (NOT DETECT); Human Rhinovirus/Enterovirus Not Detected (NOT DETECT); Influenza A Not Detected (NOT DETECT); Influenza A H1 Not Detected (NOT DETECT); Influenza A H1-2009 Not Detected (NOT DETECT); Influenza A H3 Not Detected (NOT DETECT); Influenza B Not Detected (NOT DETECT); Mycoplasma Pneumoniae Not Detected (NOT DETECT); Parainfluenza Virus Type 1 Not Detected (NOT DETECT); Parainfluenza Virus Type 2 Not Detected (NOT DETECT); Parainfluenza Virus Type 3 Not Detected (NOT DETECT); Parainfluenza Virus Type 4 Not Detected (NOT DETECT); Respiratory Syncytial Virus A Not Detected (NOT DETECT); Respiratory Syncytial Virus B Not Detected (NOT DETECT); SARS-COV-2 Not Detected (NOT DETECT)
[2021-12-18 22:26] LABS: Glucose Point of Care 124 mg/dL (70-110)
[2021-12-18] MEDS: neomycin-poly-dex Op 5 mL Btl 2 DROP EYE-BOTH (23:21)
[2021-12-18] MEDS: enoxaparin 40 mg/0.4 mL Syringe SUBCUT (23:22)
[2021-12-19] VITALS (7 sets, daily range): BP systolic 91–118; BP diastolic 52–72; PULSE 72–97; RESP 16–18; TEMP 36.3–37.1; O2SAT 86–98
[2021-12-19 05:39] LABS: Basophils % 0.3 %; Hematocrit 40.9 % (37.0-47.0); Hemoglobin 12.6 g/dL (11.5-15.3); Lymphocytes % 7.5 %; Mean Corpuscular HGB Conc 30.8 g/dL (30.0-36.0); Mean Corpuscular Hemoglobin 33.4 pg (28.0-34.0); Mean Corpuscular Volume 108.5 fl (81-99); Mean Platelet Volume 10.7 fL (7.4-10.4); Monocytes # 0.3 10^3/uL (0.2-0.9); Monocytes % 2.3 %; Neutrophils # 12.07 10^3/uL (1.8-7.7); Neutrophils % 88.7 %; Nucleated Red Blood Cells % 0 %; Platelet Count 281 10^3/cmm (130-400); Red Blood Count 3.77 10^6/uL (4.1-5.3); White Blood Count 13.6 10^3/uL (4.0-10.0)
[2021-12-19 06:00] LABS: Alanine Aminotransferase 33 U/L (0-33); Albumin Level 2.5 g/dL (3.5-5.2); Alkaline Phosphatase 227 IU/L (35-105); Anion Gap 10.9 (5-19); Aspartate Amino Transferase 23 U/L (0-32); Blood Urea Nitrogen 12 mg/dL (8-23); Calcium 8.8 mg/dL (8.5-10.5); Carbon Dioxide 29 mmol/L (22-29); Chloride 108 mmol/L (98-107); Globulin 3.5 g/dL (1.3-4.6); Glucose 146 mg/dL (65-115); Osmolality Calculated 298 mOsm/kg (285-295); Potassium 4.9 mmol/L (3.5-5.1); Sodium 143 mmol/L (136-145); Total Bilirubin 0.3 mg/dL (0.15-1.2)
--- NOTE | 2021-12-19 10:53 | PC.NURSE ---
Dr. Morse notified that pt is unable to awake enough to take medications so morning medications were held.
--- NOTE | 2021-12-19 11:11 | P.PN_ITS ---
Subjective Subjective: Patient is very drowsy, particular painful stimuli, with painful stimuli she was able to bring her arms up to the face, noncomprehensible sounds were noticed, she moves both upper extremities Cachectic, malnourished Did receive anxiolytics by the EMS for her agitation Currently on 3 L nasal cannula Vitals/I&O/Wt Last Vital Signs Temp 97.5 F L 12/19/21 08:00 Pulse 87 12/19/21 08:00 Resp 16 12/19/21 08:00 BP 106/72 12/19/21 08:00 Pulse Ox 98 12/19/21 08:00 12/18/21 12/19/21 12/19/21 22:59 06:59 14:59 Intake Total 0 / 0 0 / 0 Balance 0 / 0 0 / 0 Weight last 48 hrs Weight 55.429 kg Weight 54.25 kg Weight 49.895 kg Physical Exam Narrative: Patient is obtunded GCS 8-10 Malnourished Cachectic Thin extremities Muscle mass loss She moves her upper extremities to painful stimuli and made incomprehensible sounds Yellow crusting noted around the eyes Abdomen soft No signs of fluid overload Diminished bilateral breath sounds no audible stridor or wheezing Is not able to follow commands Data : 12/19/21 05:32 12/19/21 05:32 Micro: Microbiology 12/18/21 16:12 Blood Culture - Preliminary Blood SPECIMEN COLLECTED 12/18/21 16:10 Blood Culture - Preliminary Blood SPECIMEN COLLECTED A&P Assessment and plan (1) Acute hypoactive delirium due to another medical condition: Status: Acute Plan Metabolic encephalopathy Hypoactive delirium with underlying dementia Due to multifocal pneumonia Currently on 3 L nasal cannula Unable to participate for the physical exam Covid PCR negative Currently on community-acquired pneumonia treatment Dehydration related hypotension Responded to IV fluids Sepsis secondary to pneumonia Encephalopathy related to sepsis related to community-acquired pneumonia Metabolic encephalopathy Guarded prognosis DNR/DNI In the past she was kept on pur?ed diet for pocketing of food She seems to have severe dementia, needs assistance for daily activities She was in the memory unit at the facility Apparently she uses high dose fentanyl as a mood stabilizer D-dimer extremely high Likely related to underlying severe pneumonia We will touch base with her Attestations Medical Necessity Statement*: Guarded prognosis Time Spent in Patient Care: 20mins Coding Level of Care Code Acute Associate Director Finance for Chg Fwd Diagnoses Acute hypoactive delirium due to another medical condition F05
--- NOTE | 2021-12-19 12:23 | PC.CHAP ---
Pastoral Care Encounter/Spiritual Assessment Type of Contact [] Declined veneer sorter visit [] Patient/Family/Request visit [] Outpatient visit [] Follow-up visit [] Physician referral [] Code/Alert [x] Routine visit [] Staff referral [] Actively dying [x] Patient sleeping [] Family support [] [] Out of room [] Palliative care [] [] Receiving care in room [] Pre-surgical visit [] Trauma [] Long length of stay [] ICU visit [] Other: Relational/Emotional Strength [] Patient feels connected with others/family/visitors/staff [] Distress [] Loneliness/isolation [] Abandonment Spirituality of Patient [] Person of Sara [] Attends Yarsani of their Sara [] Believes in Prayer [] Reads Bible or Congregation materials [] There are Spiritual issues to be addressed Natural Sciences Manager Interventions [] Prayer [] Active listening [] Non-anxious presence [] Spiritual/emotional support [] Crisis/trauma care [] Spiritual counseling [] Bereavement support [] Provided bereavement packet [] Provided Bible/devotional materials [] Provided toy/stuffed animal, coloring book to patient or family member [] Provided Communion [] Anointing/Reading [] Salvation [] Completed spiritual assessment [] Other: Impact on Illness or Injury [] Angry [] Fearful [] Anxious [] Often cries [] Exhaustion [] Unable to work [] Unable to attend mormon [] Unable to walk/stand [] Unable to read [] Unable to drive [] Unable to eat/drink [] Unable to sleep [] Unable to be with family [] Patient intubated [] Other: Summary Time spent with patient
[2021-12-19] MEDS: HYDROcodone-acetaminophen 5-325 mg Tablet 1 TAB PO ×2 (14:02→20:58)
[2021-12-19] MEDS: LORazepam 0.5 mg Tablet PO ×2 (14:03→20:58)
--- NOTE | 2021-12-19 16:01 | PC.NURSE ---
pt refuses nasal cannula.
--- NOTE | 2021-12-19 16:23 | PC.NURSE ---
Pt keeps pulling and refusing to keep telemetry on.
--- NOTE | 2021-12-19 16:49 | PC.NURSE ---
Pt pulled out IV's earlier in the shift and has become increasingly restless. Dr. Morse notified and says IV's can be left out at this time.
[2021-12-19] MEDS: docusate sodium 10 mg/mL (5ml) Liq 50 MG PO (17:29)
[2021-12-19] MEDS: divalproex Sprinkles 125 mg Capsule PO (17:29)
[2021-12-19] MEDS: neomycin-poly-dex Op 5 mL Btl 2 DROP EYE-BOTH (20:58)
[2021-12-19] MEDS: ketoconazole Cream 15 gm TOPICAL (21:06)
[2021-12-20] VITALS: BP 102/58; PULSE 80; RESP 17; TEMP 36.4; O2SAT 89
--- NOTE | 2021-12-20 01:00 | PC.NURSE ---
i reported low o2 89 to nurse
[2021-12-20] MEDS: HYDROcodone-acetaminophen 5-325 mg Tablet 1 TAB PO ×2 (02:38→08:17)
[2021-12-20] MEDS: LORazepam 0.5 mg Tablet PO ×2 (02:38→08:17)
[2021-12-20 04:00] VITALS: BP 116/66; PULSE 74; RESP 18; TEMP 36.6; O2SAT 92
[2021-12-20 07:40] VITALS: PULSE 93; RESP 20; O2SAT 95
[2021-12-20 07:55] VITALS: PULSE 111; O2SAT 95
[2021-12-20] MEDS: neomycin-poly-dex Op 5 mL Btl 2 DROP EYE-BOTH (08:17)
[2021-12-20] MEDS: citalopram 20 mg Tablet 10 MG PO (08:17)
[2021-12-20] MEDS: divalproex Sprinkles 125 mg Capsule PO (08:17)
[2021-12-20] MEDS: ketoconazole Cream 15 gm TOPICAL (08:17)
[2021-12-20 09:50] LABS: SARS Covid-2 Antigen Negative (Negative)
--- NOTE | 2021-12-20 10:17 | PM.DCS ---
Discharge Providers Date of Admission: 12/18/21 18:25 Date of Discharge: December 20, 2021 Attending Provider at Admission: Darshan Reyes MD Attending Provider at Discharge: Temi Morse MD Primary Care Provider: Issa Clifton DO Diagnoses at Discharge Discharge Diagnosis (1) Acute hypoactive delirium due to another medical condition: Status: Acute Reason for Visit Reason for Visit: RESP DISTRESS COVID CONTACT Hospital Course Hospital Course This note was done by Dr. Mondragon 76-year-old lady with history of advanced dementia, [facility] resident, requiring full assistance with IADLs, recently with progression, several falls about a month ago, more recently 1 witnessed fall without head injury last week Sat, but was noted somewhat confused and weak since then.? Was noted to have low oxygen saturation today down to 84% this morning, she was started on nasal cannula oxygen support, after changing to concentrated saturation did drop to 94%.? EMS was called, on transfer previous oxygen at night again desaturated to 84%. Her neighbors [facility] in the next room over tested positive for COVID-19 last week.? She was tested with rapid test today which was negative. In the ER she is confused, occasionally moving spontaneously, but otherwise not interacting, answering questions or following commands.? Unable to provide history or could speak with exam. Per discussion with nursing staff she otherwise has been doing well including last night. Due to pocketing food in the past she is on pur?ed diet but with thin liquids, without any episodes of aspiration noted recently. Recent medication dose changes include decrease in Depakote dose down to 125 mg twice a day from 250 mg twice a day which was changed on 12/04, and today was going to be her last day of this medication.? She does not have history of seizure, sounds like this medication was for behavioral issues with advanced dementia. Her fentanyl dose also had been increased to 75 mcg patch every 3 days from 50 mcg several days ago.? This is used for chronic left upper quadrant pain she has had since her usual which she had reportedly declined in the past while still able to make decisions.? In the ER she was initially hypotensive, BP as low as 78/50, but appears to responded to fluid challenge with 2 L of NS boluses.? With sinus tachycardia 110-120.? Leukocytosis 13.1.? Low-grade fever, 100 Fahrenheit.? Noted to have elevated D-dimer 13.35, without gross evidence of large central pulmonary emboli on CTA.? CT notes bronchitis and multifocal pneumonia.? She was started on aztreonam and vancomycin.? COVID-19 PCR is pending. Full course Patient was admitted for worsening delirium with underlying dementia due to multifocal pneumonia. She was dehydrated, was given Ativan which made her drowsy at the beginning however once her mentation improved she was very agitated and was trying to get out of bed. Covid PCR negative. I discussed current status, prognosis and further plan with her . is stating that he would like her to go back to their facility where he would pursue comfort measures. He does not want us to add any aggressive treatment at the time of discharge. Patient experienced low-grade fever, had mild leukocytosis, CTA chest showed bronchitis and multifocal pneumonia. The cause of metabolic encephalopathy was underlying multifocal pneumonia. 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 Procalcitonin unremarkable. Physical Exam Narrative: Cachectic malnourished she was naked at the time of evaluation, I covered her with the blankets AIRPORT PLANNER one-to-one supervision was present in the room at the time of my evaluation elderly female Not able to follow commands Very agitated Patient was trying to get out of bed Repeating her words Moving all of her extremities Not coherent Purposeless movement of extremities Does not make eye contact Discharge Data Studies Completed and Pending Completed Studies During Hospitalization Category Date Time Status CT angio chest PE protcl [id number] Stat Cat Scan 12/18/21 16:23 Completed Pending at discharge Category Date Time Status Blood Culture Stat Lab 12/18/21 16:12 Results Sputum Culture and Gram Stain Stat Lab 12/18/21 15:18 Uncollected Vancomycin Trough Timed Lab 12/21/21 17:00 Ordered Radiology Impressions Chest CTA 12/18/21 16:23 IMPRESSION: 1. Significantly limited exam. 2. Bronchitis and multifocal pneumonia. 3. No gross evidence of large or central pulmonary emboli. Laboratory Results WBC 13.6 10^3/uL (4.0-10.0) H 12/19/21 05:32 RBC 3.77 10^6/uL (4.1-5.3) L 12/19/21 05:32 Hgb 12.6 g/dL (11.5-15.3) 12/19/21 05:32 Hct 40.9 % (37.0-47.0) 12/19/21 05:32 MCV 108.5 fl (81-99) H 12/19/21 05:32 MCH 33.4 pg (28.0-34.0) 12/19/21 05:32 MCHC 30.8 g/dL (30.0-36.0) 12/19/21 05:32 RDW 13.0 % (12.1-15.1) 12/19/21 05:32 Plt Count 281 10^3/cmm (130-400) D 12/19/21 05:32 MPV 10.7 fL (7.4-10.4) H 12/19/21 05:32 Neut % (Auto) 88.7 % 12/19/21 05:32 Lymph % (Auto) 7.5 % 12/19/21 05:32 [place] % (Auto) 2.3 % 12/19/21 05:32 Eos % (Auto) 0.0 % 12/19/21 05:32 Baso % (Auto) 0.3 % 12/19/21 05:32 Neut # (Auto) 12.07 10^3/uL (1.8-7.7) H 12/19/21 05:32 Lymph # (Auto) 1.0 10^3/uL (0.8-4.8) 12/19/21 05:32 [place] # (Auto) 0.3 10^3/uL (0.2-0.9) 12/19/21 05:32 Eos # (Auto) 0.0 10^3/uL (0.0-0.8) 12/19/21 05:32 Baso # (Auto) 0.0 10^3/uL (0.0-0.1) 12/19/21 05:32 Nucleated RBC % (auto) 0 % 12/19/21 05:32 Nucleated RBCs # 0.0 /100WBC 12/19/21 05:32 D-Dimer 13.35 ug/mIFEU (0-0.59) H 12/18/21 15:12 Specimen Type Arterial 12/18/21 17:16 Sample Site Radial, left 12/18/21 17:16 ABG pH 7.39 (7.35-7.45) 12/18/21 17:16 ABG pCO2 52.9 mmHg (35-45) H 12/18/21 17:16 ABG pO2 144.0 mmHg (80.0-100.0) H 12/18/21 17:16 ABG HCO3 32.3 mmol/L (22-26) H 12/18/21 17:16 ABG Base Excess 6.2 mmol/L (-2.0-2.0) H 12/18/21 17:16 Edilberto Test Pos 12/18/21 17:16 Hematocrit 34.3 % (37-47) L 12/18/21 17:16 O2 Delivery Device Nc 12/18/21 17:16 O2 Liters/Min 3.5 % 12/18/21 17:16 Lacquer Dipping Machine Operator ID Cak 12/18/21 17:16 Sodium 143 mmol/L (136-145) 12/19/21 05:32 Potassium 4.9 mmol/L (3.5-5.1) 12/19/21 05:32 Chloride 108 mmol/L (98-107) H 12/19/21 05:32 Carbon Dioxide 29 mmol/L (22-29) 12/19/21 05:32 Anion Gap 10.9 (5-19) 12/19/21 05:32 BUN 12 mg/dL (8-23) 12/19/21 05:32 Creatinine 0.5 mg/dL (0.5-0.9) 12/19/21 05:32 GFR Calculation Not Reportable 12/19/21 05:32 Glucose 146 mg/dL (65-115) H 12/19/21 05:32 POC Glucose 124 mg/dL (70-110) H 12/18/21 22:23 Calculated Osmolality 298 mOsm/kg (285-295) H 12/19/21 05:32 Lactic Acid 1.8 mmol/L (0.5-2.2) 12/18/21 15:12 Calcium 8.8 mg/dL (8.5-10.5) 12/19/21 05:32 Total Bilirubin 0.3 mg/dL (0.15-1.2) 12/19/21 05:32 AST 23 U/L (0-32) 12/19/21 05:32 ALT 33 U/L (0-33) 12/19/21 05:32 Alkaline Phosphatase 227 IU/L (35-105) H 12/19/21 05:32 C-Reactive Protein 160.0 mg/L (0.0-4.9) H 12/18/21 15:12 Total Protein 6.0 g/dL (6.6-8.7) L 12/19/21 05:32 Albumin 2.5 g/dL (3.5-5.2) L 12/19/21 05:32 Globulin 3.5 g/dL (1.3-4.6) 12/19/21 05:32 Procalcitonin 0.26 ng/mL (0-0.5) 12/18/21 15:12 Valproic Acid 12.0 ug/mL (50-100) L 12/18/21 15:12 Coronavirus 229E (PCR) Not detected (NOT DETECT) 12/18/21 15:28 SARS-CoV-2 (PCR) Not detected (NOT DETECT) 12/18/21 15:28 SARS-CoV-2 Ag (Rapid) Negative (Negative) 12/20/21 09:15 Vitals Last Vital Signs Temp 97.8 F 12/20/21 04:00 Pulse 111 H 12/20/21 07:55 Resp 20 H 12/20/21 07:40 BP 116/66 12/20/21 04:00 Pulse Ox 95 12/20/21 07:55 Discharge Plan Discharge Patient Disposition: Xfer SNF Condition: Stable Prescriptions: New levofloxacin 750 mg tablet 750 mg PO DAILY 7 Days Qty: 7 0RF Continued docusate sodium 50 mg/5 mL Liquid 50 mg PO BID 0RF ketoconazole 2 % cream See Rx Instructions .ROUTE .COMPLEX 0RF Rx Instructions: topically APPLY BARRIER CREAM TO [place] TID AND PRN fluticasone propionate 50 mcg/actuation [place],Suspension 1 spray INTRANASAL DAILY 0RF Rx Instructions: 1 SPRAY EACH NOSTRIL, DAILY Tylenol 325 mg Tablet 325 mg PO QID PRN (Reason: Pain) 0RF citalopram 10 mg tablet 10 mg PO DAILY 0RF hydrocodone-acetaminophen 5-325 mg tablet 1 tab PO Q6H 0RF lorazepam 0.5 mg tablet 0.5 mg PO Q6H 0RF neomycin-polymyxin B-dexameth 3.5mg/mL-10,000 unit/mL-0.1 % drops,suspension 2 drp ophthalmic (eye) TID 0RF Fleet Enema 19-7 gram/118 mL Enema 197 ml [place] DAILY PRN (Reason: Constipation) 0RF Miralax 17 gram/dose Powder 17 g PO DAILY 0RF fentanyl 75 mcg/hr patch 72 hour 1 patch transdermal Q3D 0RF Discontinued divalproex 125 mg capsule, delayed rel sprinkle 125 mg PO DAILY 0RF TwoCal HN Liquid 1 ea PO TID 0RF Discharge Orders: Discharge Order (Routine); Ordered 12/20/21 Ordered By: Temi Morse [facility]errals: [facility] [Outside] Issa Clifton DO [Primary Care Provider] - Discharge Diet: GI Soft Discharge Attestations Time Spent in Discharge Care*: less than 30 min Quality Metrics Clinical Quality Measures [ No reported AMI, CVA or VTE this stay] Coding Level of Care Code Acute Chg FW DC note Diagnoses Acute hypoactive delirium due to another medical condition F05
--- NOTE | 2021-12-20 11:01 | PC.NURSE ---
Report called to [facility] to NICOLA Kim.
[2021-12-20 11:03] VITALS: PULSE 75; RESP 18; TEMP 36.4; O2SAT 90
== END 2021-12-20 13:00 | disposition skilled nursing facility (03) | DRG 871 ==
LOC: ER 16:05 → MEDSURG 19:22
PROVIDERS: Internal Medicine; Admitting Provider Family Medicine; Emergency Provider Family Medicine; PCP Internal Medicine; Visit Provider Internal Medicine
DX: A41.9 Sepsis, unspecified organism (principal); J18.9 Pneumonia, unspecified organism; G93.41 Metabolic encephalopathy; F05 Delirium due to known physiological condition; E46 Unspecified protein-calorie malnutrition; Z68.1 Body mass index [BMI] 19.9 or less, adult; F03.90 Unspecified dementia, unspecified severity, without behavioral disturbance, psychotic disturbance, mood disturbance, and anxiety; Z66 Do not resuscitate; Z91.81 History of falling; R10.12 Left upper quadrant pain; G89.29 Other chronic pain; I95.9 Hypotension, unspecified; E86.0 Dehydration
CPT/HCPCS: 36415; 36416; 36600; 71275; 80053; 80164; 82803; 82962; 83605; 84145; 85025; 85378; 86140; 87040; 87426; 87635; 94664; 96365; 96367; 96372; 99285; J1650; J1720; J3370; J3490; J7030; J7040; J7050; Q9967

== ENCOUNTER 2022-02-15 05:55 | Emergency (ER) | payer MEDICARE, OTHER, MEDICAID, SELFPAY ==
[2022-02-15 05:56] VITALS: BP 112/52; PULSE 81; RESP 20; O2SAT 94; BMI 18.5
--- NOTE | 2022-02-15 06:05 | CTR_ITS ---
PROCEDURE INFORMATION: Exam: CT Head Without Contrast Exam date and time: 02/15/2022 7:05 AM Age: 76 years old Clinical indication: Injury or trauma; Fall; Bleeding/hemorrhage; Injury details: Cut on back of head; Additional info: Fall, closed head injury TECHNIQUE: Imaging protocol: Computed tomography of the head without contrast. Radiation optimization: All CT scans at this facility use at least one of these dose optimization techniques: automated exposure control; mA and/or kV adjustment per patient size (includes targeted exams where dose is matched to clinical indication); or iterative reconstruction. COMPARISON: CT head wo con* [id number] 11/03/2019 8:19 PM RADIATION DOSE METRICS: Total DLP (mGy-cm): 927.69 FINDINGS: Brain: Cannot exclude acute abnormality the vertex and posterior fossa due to significant motion artifact. Otherwise unremarkable examination without definite acute hemorrhage. No midline shift.Periventricular and deep white matter hypodensities compatible with chronic microvascular ischemic changes. Cerebral ventricles: No ventriculomegaly. Paranasal sinuses: Visualized sinuses are unremarkable. No fluid levels. Mastoid air cells: No mastoid effusion. Bones/joints: Limited evaluation for fracture due to significant motion artifact Soft tissues: Unremarkable. CT/CT head wo con* [id number] IMPRESSION: Cannot exclude acute abnormality at the vertex and posterior fossa due to significant motion artifact. Otherwise unremarkable examination.
[2022-02-15 06:13] VITALS: TEMP 36.2
[2022-02-15 06:31] LABS: Add Urine Microscopic? NO; Charge for UA Resulting for Rev
[2022-02-15 06:33] LABS: Bilirubin Urine Neg (Negative); Blood Urine Neg (Negative); Glucose Urine UA Norm (Normal); Ketones Urine Negative (Negative); Leukocyte Esterase Urine Negative (Negative); Nitrate Urine Negative (Negative); Protein Urine Neg (Negative); Urine Appearance Clear (CLEAR); Urine Color Yellow (Yellow); Urobilinogen Urine Norm (Negative); pH Urine 5 (5-7)
[2022-02-15 06:33] LABS: Basophils # 0.1 10^3/uL (0.0-0.1); Eosinophils # 0.1 10^3/uL (0.0-0.8); Eosinophils % 2.7 %; Hematocrit 39.5 % (37.0-47.0); Hemoglobin 12.5 g/dL (11.5-15.3); Lymphocytes # 1.1 10^3/uL (0.8-4.8); Lymphocytes % 23.7 %; Mean Corpuscular HGB Conc 31.6 g/dL (30.0-36.0); Mean Corpuscular Hemoglobin 32.8 pg (28.0-34.0); Mean Corpuscular Volume 103.7 fl (81-99); Mean Platelet Volume 10.9 fL (7.4-10.4); Monocytes # 0.4 10^3/uL (0.2-0.9); Monocytes % 8.7 %; Neutrophils # 3.06 10^3/uL (1.8-7.7); Neutrophils % 63.7 %; Nucleated Red Blood Cells % 0 %; Platelet Count 161 10^3/cmm (130-400); Red Blood Count 3.81 10^6/uL (4.1-5.3); White Blood Count 4.8 10^3/uL (4.0-10.0)
[2022-02-15 06:37] VITALS: BP 107/59; PULSE 86; RESP 18; O2SAT 93
[2022-02-15 06:50] LABS: Alanine Aminotransferase 12 U/L (0-33); Albumin Level 3.6 g/dL (3.5-5.2); Alkaline Phosphatase 111 IU/L (35-105); Anion Gap 11.4 (5-19); Aspartate Amino Transferase 20 U/L (0-32); Blood Urea Nitrogen 14 mg/dL (8-23); Calcium 8.6 mg/dL (8.5-10.5); Carbon Dioxide 30 mmol/L (22-29); Chloride 104 mmol/L (98-107); Globulin 2.8 g/dL (1.3-4.6); Glucose 96 mg/dL (65-115); Osmolality Calculated 292 mOsm/kg (285-295); Potassium 4.4 mmol/L (3.5-5.1); Sodium 141 mmol/L (136-145); Total Bilirubin 0.3 mg/dL (0.15-1.2); Total Protein 6.4 g/dL (6.6-8.7)
--- NOTE | 2022-02-15 06:53 | PC.NURSE ---
0610 Pt in advanced stages of dementia, very restless trying to climb over side rails. Pt unable to reason with.
--- NOTE | 2022-02-15 07:09 | W.ED.FALL ---
HPI - Fall General: Chief Complaint: Fall Stated Complaint: FALL Time Seen by Provider: 02/15/22 06:03 Source: EMS and old records reviewed Mode of arrival: EMS Limitations: altered mental status History of Present Illness: 76-year-old female presents emergency room after a fall at the detention. Patient has a small laceration on the occipital. She has multiple bruises at various stages of healing from previous falls has a history of dementia. Patient is not on any anticoagulants. She cannot really contribute to her history at all because of her dementia MD complaint: fall Fall from: standing Fall witnessed: yes, by living facility staff Place fall occurred: detention/SNF Loss of consciousness: Unsure Symptoms prior to fall: none Location of injury: head Review of Systems General: Reports: ROS unobtainable due to mental status PFSH ED PFSH: Medical History Acute encephalopathy Acute hypoactive delirium due to another medical condition D-dimer, elevated Dementia Drug dose changed Hypotension Hypoxia Pneumonia Sepsis Social History Smoking and tobacco status: unknown if ever smoked Physical Exam Const: COMMON NORMALS: no acute distress ORIENTATION/CONSCIOUSNESS: Yes awake HENMT: COMMON NORMALS: normocephalic HEAD & SCALP: normocephalic OTHER: Occipital scalp laceration slight gaping no active bleeding Neck/C-Spine: COMMON NORMALS: full ROM, no lymphadenopathy, supple and no JVD Resp: COMMON NORMALS: normal respiratory effort, No retractions, No use of accessory muscles and clear to auscultation bilaterally AUSCULTATION: clear to auscultation bilaterally Cardio: COMMON NORMALS: no JVD, regular rate, regular rhythm and No murmurs present (Cardio) RATE: regular rate RHYTHM: regular rhythm GI: COMMON NORMALS: Soft to palpation and No hepatosplenomegaly present AUSCULTATION: Yes normoactive bowel sounds PALPATION: Yes Soft to palpation, No Tenderness to palpation present (GI), No Guarding due to palpation present (GI) and Yes No hepatosplenomegaly present Extremity: COMMON NORMALS: normal to inspection, capillary refill normal, no clubbing, cyanosis or edema, no calf tenderness and no pedal edema Skin: COMMON NORMALS: no rashes or lesions noted GENERAL SKIN EXAM: no rashes or lesions noted Procedures Laceration Laceration 1: Site: scalp Size (cm): 3.5 Description: linear Depth: simple, single layer (3 carlene applied.) Course Vital Signs: Vital signs: Vital Signs Temperature 97.2 F L 02/15/22 06:13 Pulse Rate 86 02/15/22 06:37 Respiratory Rate 18 02/15/22 06:37 Blood Pressure 107/59 02/15/22 06:37 Pulse Oximetry 93 02/15/22 06:37 MDM - Fall Medical Decision Making Patient active moving all extremities range of motion extremities she has no evidence of pain. Head CT did not show anything acute there was some motion artifact but she is quite active at this point. [place] applied to the wound should be removed in 7 to 10 days return to the detention. Did require Ativan for sedation for placement of carlene. Medical Records I reviewed the patient's medical records. Lab Data I reviewed the patient's lab results. : 02/15/22 06:23 02/15/22 06:[address] 02/15/22 06:05 IMPRESSION: Cannot exclude acute abnormality at the vertex and posterior fossa due to significant motion artifact. Otherwise unremarkable examination. Laboratory Results WBC 4.8 10^3/uL (4.0-10.0) 02/15/22 06:23 RBC 3.81 10^6/uL (4.1-5.3) L 02/15/22 06:23 Hgb 12.5 g/dL (11.5-15.3) 02/15/22 06:23 Hct 39.5 % (37.0-47.0) 02/15/22 06:23 MCV 103.7 fl (81-99) H 02/15/22 06:23 MCH 32.8 pg (28.0-34.0) 02/15/22 06:23 MCHC 31.6 g/dL (30.0-36.0) 02/15/22 06:23 RDW 13.0 % (12.1-15.1) 02/15/22 06:23 Plt Count 161 10^3/cmm (130-400) 02/15/22 06:23 MPV 10.9 fL (7.4-10.4) H 02/15/22 06:23 Neut % (Auto) 63.7 % 02/15/22 06:23 Lymph % (Auto) 23.7 % 02/15/22 06:23 Major % (Auto) 8.7 % 02/15/22 06:23 Eos % (Auto) 2.7 % 02/15/22 06:23 Baso % (Auto) 1.0 % 02/15/22 06:23 Neut # (Auto) 3.06 10^3/uL (1.8-7.7) 02/15/22 06:23 Lymph # (Auto) 1.1 10^3/uL (0.8-4.8) 02/15/22 06:23 Major # (Auto) 0.4 10^3/uL (0.2-0.9) 02/15/22 06:23 Eos # (Auto) 0.1 10^3/uL (0.0-0.8) 02/15/22 06:23 Baso # (Auto) 0.1 10^3/uL (0.0-0.1) 02/15/22 06:23 Nucleated RBC % (auto) 0 % 02/15/22 06: Nucleated RBCs # 0.0 /100WBC 02/15/22 06:23 Sodium 141 mmol/L (136-145) 02/15/22 06:23 Potassium 4.4 mmol/L (3.5-5.1) 02/15/22 06:23 Chloride 104 mmol/L (98-107) 02/15/22 06:23 Carbon Dioxide 30 mmol/L (22-29) H 02/15/22 06:23 Anion Gap 11.4 (5-19) 02/15/22 06:23 BUN 14 mg/dL (8-23) 02/15/22 06:23 Creatinine 0.5 mg/dL (0.5-0.9) 02/15/22 06:23 GFR Calculation Not Reportable 02/15/22 06:23 Glucose 96 mg/dL (65-115) 02/15/22 06:23 Calculated Osmolality 292 mOsm/kg (285-295) 02/15/22 06:23 Calcium 8.6 mg/dL (8.5-10.5) 02/15/22 06:23 Total Bilirubin 0.3 mg/dL (0.15-1.2) 02/15/22 06:23 AST 20 U/L (0-32) 02/15/22 06:23 ALT 12 U/L (0-33) 02/15/22 06:23 Alkaline Phosphatase 111 IU/L (35-105) H 02/15/22 06:23 Total Protein 6.4 g/dL (6.6-8.7) L 02/15/22 06:23 Albumin 3.6 g/dL (3.5-5.2) 02/15/22 06:23 Globulin 2.8 g/dL (1.3-4.6) 02/15/22 06:23 Urine Color Yellow (Yellow) 02/15/22 06:20 Urine Appearance Clear (CLEAR) 02/15/22 06:20 Urine pH 5 (5-7) 02/15/22 06:20 Ur Specific [place] 1.020 (1.005-1.030) 02/15/22 06:20 Urine Protein Neg (Negative) 02/15/22 06:20 Urine Glucose (UA) Norm (Normal) 02/15/22 06:20 Urine Ketones Negative (Negative) 02/15/22 06:20 Urine Blood Neg (Negative) 02/15/22 06:20 Urine Nitrate Negative (Negative) 02/15/22 06:20 Urine Bilirubin Neg (Negative) 02/15/22 06:20 Urine Urobilinogen Norm mg/dL (Negative) 02/15/22 06:20 Ur Leukocyte Esterase Negative (Negative) 02/15/22 06:20 Discharge Plan Discharge Patient Disposition: Home Clinical Impression: Fall, Dementia, Laceration of head Condition: Stable Prescriptions: No Action docusate sodium 50 mg/5 mL Liquid 50 mg PO BID 0RF ketoconazole 2 % cream See Rx Instructions .ROUTE .COMPLEX 0RF Rx Instructions: topically APPLY BARRIER CREAM TO [place] TID AND PRN fluticasone propionate 50 mcg/actuation [place],Suspension 1 spray INTRANASAL DAILY 0RF Rx Instructions: 1 SPRAY EACH NOSTRIL, DAILY Tylenol 325 mg Tablet 325 mg PO QID PRN (Reason: Pain) 0RF citalopram 10 mg tablet 10 mg PO DAILY 0RF hydrocodone-acetaminophen 5-325 mg tablet 1 tab PO Q6H 0RF lorazepam 0.5 mg tablet 0.5 mg PO Q6H 0RF neomycin-polymyxin B-dexameth 3.5mg/mL-10,000 unit/mL-0.1 % drops,suspension 2 drp ophthalmic (eye) TID 0RF Fleet Enema 19-7 gram/118 mL Enema 197 ml [place] DAILY PRN (Reason: Constipation) 0RF Miralax 17 gram/dose Powder 17 g PO DAILY 0RF fentanyl 75 mcg/hr patch 72 hour 1 patch transdermal Q3D 0RF Discharge Orders: Discharge ED (Routine); Ordered 02/15/22 Ordered By: Codey Snyder Referrals: Issa Clifton DO [Primary Care Provider] - Patient Instructions: Opioid Safety Activity Restrictions/Additional Instructions: Carlene removed in 7 to 10 days Coding Level of Care Code ED Tin Tie Machine Operator Automatic for Tyrell Moore
[2022-02-15] MEDS: LORazepam 2 mg/mL INJ 1 mL IM (07:15)
--- NOTE | 2022-02-15 07:56 | PC.NURSE ---
report called to [facility]. no nurses available
== END 2022-02-15 08:04 | disposition home or self-care (01) ==
PROVIDERS: Emergency Provider Family Medicine; PCP Internal Medicine
DX: S01.01XA Laceration without foreign body of scalp, initial encounter (principal); W19.XXXA Unspecified fall, initial encounter; Y92.129 Unspecified place in nursing home as the place of occurrence of the external cause; F03.90 Unspecified dementia, unspecified severity, without behavioral disturbance, psychotic disturbance, mood disturbance, and anxiety
CPT/HCPCS: 12001; 70450; 80053; 81003; 85025; 96372; 99283; J2060

== ENCOUNTER 2022-06-21 06:33 | Emergency (ER) | payer MEDICARE, OTHER, MEDICAID, SELFPAY ==
[2022-06-21 06:38] VITALS: PULSE 120; RESP 20; TEMP 36.7; O2SAT 94; BMI 20.7
--- NOTE | 2022-06-21 06:42 | XR_ITS ---
WS: [id number] XR hand LT min 3V* [id number] REASON FOR EXAM: injury FINDINGS: The presumed monitor attached to the fifth finger limits evaluation of the fifth DIP however no abnor mality is identified. Positioning is not optimal with overlapping of the fingers, best as can be achi eved. 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 No fracture or dislocation identified. No soft tissue abnormality. XR/XR hand LT min 3V* [id number] IMPRESSION: Limited exam due to patient mental status. No fracture or dislocation is identi fied. No radiopaque foreign body is seen in the soft tissues.
[2022-06-21] MEDS: ziprasidone 20 mg/mL SDV 10 MG IM (06:43)
--- NOTE | 2022-06-21 06:43 | W.ED.GENADLT ---
HPI - General Adult General: Chief complaint: Wound/Laceration Stated complaint: finger lacs Time Seen by Provider: 06/21/22 06:36 Source: EMS Mode of arrival: EMS Limitations: altered mental status History of Present Illness: 76-year-old female who has a history of dementia she is here from intermediate she has sundowning as well. Tonight she became agitated lacerated her left index and middle finger on some glass set up here for lacerations patient is given Haldol she is more calm now she is altered she is at her baseline. Review of Systems General: Reports: ROS unobtainable due to mental status PFS ED PFSH: Medical History Acute encephalopathy Acute hypoactive delirium due to another medical condition D-dimer, elevated Dementia Drug dose changed Hypotension Hypoxia Pneumonia Sepsis Social History Smoking and tobacco status: unknown if ever smoked Physical Exam Const: COMMON NORMALS: negative for patient oriented x3 HENMT: COMMON NORMALS: normocephalic and atraumatic HEAD & SCALP: normocephalic and atraumatic Eye: COMMON NORMALS: Equal, round and reactive pupils present and EOMs intact bilaterally PUPIL: Yes Equal, round and reactive pupils present Neck/C-Spine: COMMON NORMALS: full ROM and supple Chest: COMMONS NORMALS: normal inspection of the chest and normal palpation of entire chest wall Resp: COMMON NORMALS: normal respiratory effort, No retractions, No use of accessory muscles and clear to auscultation bilaterally AUSCULTATION: clear to auscultation bilaterally Cardio: COMMON NORMALS: regular rate, regular rhythm and No murmurs present (Cardio) RATE: regular rate RHYTHM: regular rhythm GI: COMMON NORMALS: Normal to inspection, nondistended, normoactive bowel sounds present, Soft to palpation, non-tender and no masses PALPATION: Yes Soft to palpation Extremity: NARRATIVE EXTREMITY EXAM: 1 cm superficial laceration to the distal middle and index finger left hand Neuro: COMMON NORMALS: moves all extremities and no focal motor deficits; negative for patient oriented x3 Psych: COMMON NORMALS: negative for mental status grossly normal Skin: COMMON NORMALS: no rashes or lesions noted and no wounds GENERAL SKIN EXAM: no rashes or lesions noted Procedures Laceration Laceration 1: Site: hand (index finger) Side (If applicable): left Size (cm): 1 Description: linear Depth: simple, single layer Pre-repair: wound explored and irrigated extensively Skin layer closed with: other (dermabond) Laceration 2: Site: hand Side (If applicable): left (middle finger) Size (cm): 1 Description: linear Depth: simple, single layer Skin layer closed with: other (dermabond) Course Vital Signs: Vital signs: Vital Signs Temperature 98.0 F 06/21/22 06:38 Pulse Rate 120 H 06/21/22 06:38 Respiratory Rate 20 H 06/21/22 06:38 Pulse Oximetry 94 06/21/22 06:38 Oxygen Delivery Me thod 06/21/22 06:38 MDM - General Adult Medical Decision Making Patient presents here with finger lacerations along with dementia I did repair the lacerations with Dermabond she is well-appearing here she is back to her baseline she stable for discharge back to the intermediate. Discharge Plan Discharge Patient Disposition: Home Clinical Impression: Laceration, Dementia Condition: Stable Prescriptions: No Action docusate sodium 50 mg/5 mL Liquid 50 mg PO BID ketoconazole 2 % cream See Rx Instructions .ROUTE .COMPLEX Rx Instructions: topically APPLY BARRIER CREAM TO BURROCKS TID AND PRN fluticasone propionate 50 mcg/actuation [place],Suspension 1 spray INTRANASAL DAILY Rx Instructions: 1 SPRAY EACH NOSTRIL, DAILY Tylenol 325 mg Tablet 325 mg PO QID PRN (Reason: Pain) citalopram 10 mg tablet 10 mg PO DAILY hydrocodone-acetaminophen 5-325 mg tablet 1 tab PO Q6H lorazepam 0.5 mg tablet 0.5 mg PO Q6H neomycin-polymyxin B-dexameth 3.5mg/mL-10,000 unit/mL-0.1 % drops,suspension 2 drp ophthalmic (eye) TID Fleet Enema 19-7 gram/118 mL Enema 197 ml [place] DAILY PRN (Reason: Constipation) Miralax 17 gram/dose Powder 17 g PO DAILY fentanyl 75 mcg/hr patch 72 hour 1 patch transdermal Q3D Discharge Orders: Discharge ED (Routine); Ordered 06/21/22 Ordered By: Emma Cavanaugh Referrals: Issa Clifton DO [Primary Care Provider] - Discharge Diet: Advance as tolerated Discharge Activity: Resume usual activity Patient Instructions: Laceration (ED) Coding Level of Care Code ED Sales Record Clerk for Tyrell Fwd Exam Comprehensive
--- NOTE | 2022-06-21 07:22 | PC.NURSE ---
This nurse placed bandaids on patient, updated patients , called report to Rafael Tabor, waiting on ride now.
== END 2022-06-21 09:45 | disposition home or self-care (01) ==
PROVIDERS: Emergency Provider Emergency Medicine; PCP Internal Medicine
DX: S61.211A Laceration without foreign body of left index finger without damage to nail, initial encounter (principal); S61.213A Laceration without foreign body of left middle finger without damage to nail, initial encounter; W25.XXXA Contact with sharp glass, initial encounter; F03.90 Unspecified dementia, unspecified severity, without behavioral disturbance, psychotic disturbance, mood disturbance, and anxiety
CPT/HCPCS: 12001; 73130; 96372; 99285; J3486

== ENCOUNTER 2022-08-03 13:43 | Emergency (ER) | payer MEDICARE, OTHER, MEDICAID, SELFPAY ==
[2022-08-03 14:03] VITALS: PULSE 62; RESP 18; O2SAT 92; BMI 15.0
--- NOTE | 2022-08-03 14:03 | XRR_ITS ---
PROCEDURE INFORMATION: Exam: XR Bilateral Hips Exam date and time: 08/03/2022 3:43 PM Age: 76 years old Clinical indication: Injury or trauma; Fall; Blunt trauma (contusions or hematomas); Bilateral; Hip; Additional info: Fall with hip pain TECHNIQUE: Imaging protocol: Radiologic exam of the bilateral hips. Views: 2 views of hips with pelvis when performed. COMPARISON: [place] [id number] 11/03/2019 8:25 PM FINDINGS: Bones/joints: Unremarkable. No acute fracture. Soft tissues: Unremarkable. XR/XR hip BI 3-4V wo/w pel [id number] IMPRESSION: No acute findings.
--- NOTE | 2022-08-03 14:04 | ED_ITS ---
HPI - Fall General: Chief Complaint: Fall Stated Complaint: LEFT HIP PAIN S/P FALL Time Seen by Provider: 08/03/22 13:49 History of Present Illness: Patient is a 76-year-old female who comes to the ED with a fall. She has a past medical history of dementia and resides in a long term. Fall occurred at 3:30 in the morning last night. She has been complaining of having some hip pain since fall. She is nonspecific on which side hurts worse. She is able to weight-bear on both legs. Associated symptoms-after fall: Denies abdominal pain, chest pain, headache(s), hematuria or neck pain Review of Systems Const: Denies: fever(s), chills or fatigue Eyes: Denies: change in vision or eye discomfort ENMT: Denies: throat pain, odynophagia, nasal discharge or nasal congestion Card: Denies: chest pain, palpitations, edema, swelling of feet/ankles, dyspnea on exertion or orthopnea Resp: Denies: dyspnea, productive cough or non-productive cough GI: Denies: abdominal pain, nausea, vomiting, diarrhea, constipation or hemat ochezia : Denies: flank pain, dysuria or hematuria Musc: Reports: extremity pain (Hip pain); Denies: neck pain, back pain or extremity swelling Skin/Breast: Denies: rash or new lesions Neuro: Denies: headache(s), numbness in extremities or weakness in extremities PFSH ED PFSH: Medical History Acute encephalopathy Acute hypoactive delirium due to another medical condition D-dimer, elevated Dementia Drug dose changed Hypotension Hypoxia Pneumonia Sepsis Surgical History No pertinent past surgical history Social History Smoking and tobacco status: unknown if ever smoked Physical Exam Const: COMMON NORMALS: alert EXAM LIMITATIONS: other limitations (Patient has dementia) GENERAL APPEARANCE: not cooperative (Due to her dementia she is struggling to cooperate) OTHER: Patient is having trouble sitting still and keeps trying to get up out of wheelchair and bed. HENMT: COMMON NORMALS: normocephalic HEAD & SCALP: normocephalic MOUTH: Normal oral and palatal mucosa present THROAT: posterior oropharynx normal and uvula midline Neck/C-Spine: COMMON NORMALS: supple GENERAL: Yes normal visual inspection Resp: COMMON NORMALS: normal respiratory effort, No retractions, No use of accessory muscles and clear to auscultation bilaterally AUSCULTATION: clear to auscultation bilaterally Cardio: COMMON NORMALS: regular rate, regular rhythm, S1 normal heart sound present, S2 normal heart sound present, No gallops present (Cardio), No clicks present (Cardio), No murmurs present (Cardio) and Peripheral pulses 2+ throughout RATE: regular rate RHYTHM: regular rhythm HEART SOUNDS: S1 normal heart sound present and S2 normal heart sound present PERIPHERAL PULSES: Peripheral pulses 2+ throughout GI: COMMON NORMALS: Normal to inspection, nondistended, normoactive bowel sounds present, Soft to palpation, non-tender and no masses PALPATION: Yes Soft to palpation : COMMON NORMALS: Yes no CVA tenderness BLADDER/KIDNEY EXAM: Yes no CVA tenderness Back/Pelvis: COMMON NORMALS: no CVA tenderness Neuro: SENSORIUM/ORIENTATION: Yes alert Skin: GENERAL SKIN EXAM: dry skin Course ED course: Nurse came to me and told me patient's heart rate was elevated above 130. I went in and checked on patient and heart rate was down between 95 to 100 bpm. Patient's was present in the room and said that patient has a history of an irregular heart rate. Vital Signs: Vital signs: Vital Signs Pulse Rate 63 08/03/22 20:11 Respiratory Rate 16 08/03/22 20:11 Blood Pressure 108/55 08/03/22 20:11 Pulse Oximetry 97 08/03/22 20:11 Oxygen Delivery Ri thod 08/03/22 14:03 MDM - Fall Medical Decision Making Patient is a 76-year-old female comes to the ED with a fall and complaining of some hip pain. Patient has severe dementia and resides at long term facility. Patient's was present in the ED and helping with history given patient's dementia and current mental state. Denies any head trauma or loss of consciousness. Patient appears to be moving lower extremities well and weightbearing on both. X-rays of hip showed no acute fractures or findings. She was stable for discharge back to long term facility. Lab Data Radiology Impressions Hip/Pelvis X-Ray 08/03/22 14:03 IMPRESSION: No acute findings. Discharge Plan Discharge Patient Disposition: Home Clinical Impression: Fall with no significant injury Qualifiers: Encounter type: initial encounter Qualified Code(s): W19.XXXA - Unspecified fall, initial encounter Condition: Stable Prescriptions: No Action docusate sodium 50 mg/5 mL Liquid 50 mg PO BID ketoconazole 2 % cream See Rx Instructions .ROUTE .COMPLEX Rx Instructions: topically APPLY BARRIER CREAM TO [place] TID AND PRN fluticasone propionate 50 mcg/actuation [place],Suspension 1 spray INTRANASAL DAILY Rx Instructions: 1 SPRAY EACH NOSTRIL, DAILY Tylenol 325 mg Tablet 325 mg PO QID PRN (Reason: Pain) citalopram 10 mg tablet 10 mg PO DAILY hydrocodone-acetaminophen 5-325 mg tablet 1 tab PO Q6H lorazepam 0.5 mg tablet 0.5 mg PO Q6H neomycin-polymyxin B-dexameth 3.5mg/mL-10,000 unit/mL-0.1 % drops,suspension 2 drp ophthalmic (eye) TID Fleet Enema 19-7 gram/118 mL Enema 197 ml SD DAILY PRN (Reason: Constipation) Miralax 17 gram/dose Powder 17 g PO DAILY fentanyl 75 mcg/hr patch 72 hour 1 patch transdermal Q3D Discharge Orders: Discharge ED (Routine); Ordered 08/03/22 Ordered By: Jules Magana Referrals: Issa Clifton DO [Primary Care Provider] - Discharge Diet: Regular Discharge Activity: Increase activity as tolerated Activity Restrictions/Additional Instructions: Follow-up with medical provider as directed in the next 5 to 7 days for reevaluation. Continue taking all home medications as previously prescribed. Return to the ER or your medical provider if condition worsens. Please read and understand discharge instructions. Thank you for choosing [facility] for your healthcare needs today. Please realize this is an emergency room and that we are providing you with a medical screening exam and this may not be complete and all inclusive of all the testing and or work up that you may need to determine your ailment or severity of your illness. It is very important that you follow up as instructed or that you return to the Emergency Department should you have concerns or if your condition changes or worsens in any way. Coding Level of Care Code ED Tray Drier Operator for Tyrell Fwfariba Exam Comprehensive
[2022-08-03] MEDS: haloperidol inj 5 mg/mL INJ 1 mL IM (14:12)
--- NOTE | 2022-08-03 14:22 | PC.NURSE ---
WHILE AT BEDSIDE PT CO PAIN WHEN TOUCHING IN EXT OF HER BODY. RELAYED FROM STAFF THAT PRISON IS CONCERNED FOR LEFT HIP OR LEG INJURY. PT DENIES ANY LOSS OF FUNCTION OR SENSATION TO BILATERAL EXT. PT LEFT PEDAL PULSE IS +2 CAP REFILL IS LESS THAN3 SECONDS. PT IS CONFUSED AND SAYS INAPPROPRIATE WORDS. PT HAS A HX OF AMS AT BASELINE. PT BREATHING IS NONLABORED. RATE AND RHYTHM ARE WNL. PT SKIN IS WARM DRY AND PINK.
[2022-08-03] MEDS: ziprasidone 20 mg/mL SDV 10 MG IM (15:24)
--- NOTE | 2022-08-03 16:20 | PC.NURSE ---
NOTIFIED PROVIDER ANAM OF HR OF 120BPM. HE VERBALIZED UNDERSTANDING AND VO TO MONITOR UNTIL DIRECTED FURTHER
--- NOTE | 2022-08-03 16:30 | PC.NURSE ---
PROVIDER ANAM VO TO CONTINUE WITH DC.
[2022-08-03 16:31] VITALS: BP 96/48; PULSE 94; RESP 22; O2SAT 94
--- NOTE | 2022-08-03 16:40 | PC.NURSE ---
REPORT CALLED TO LUANA RODRIGUEZ AT [facility].
[2022-08-03 19:07] VITALS: PULSE 73; RESP 18; O2SAT 95
--- NOTE | 2022-08-03 19:09 | PC.NURSE ---
REPORT GIVEN TO RICH RODRIGUEZ ASSUMED CARE.
[2022-08-03 20:11] VITALS: BP 108/55; PULSE 63; RESP 16; O2SAT 97
== END 2022-08-03 20:12 | disposition home or self-care (01) ==
PROVIDERS: Emergency Provider Physician Assistant; PCP Internal Medicine
DX: M25.552 Pain in left hip (principal); F03.90 Unspecified dementia, unspecified severity, without behavioral disturbance, psychotic disturbance, mood disturbance, and anxiety
CPT/HCPCS: 73522; 96372; 99284; J1630; J3486

== ENCOUNTER 2022-10-14 22:38 | Emergency (ER) | payer MEDICARE, OTHER, MEDICAID, SELFPAY ==
[2022-10-14 22:40] VITALS: BP 141/75; PULSE 88; RESP 18; TEMP 36.5; O2SAT 92; BMI 18.1
--- NOTE | 2022-10-14 22:40 | W.ED.FALL ---
HPI - Fall General: Chief Complaint: Head Injury Stated Complaint: fall Time Seen by Provider: 10/14/22 22:40 Limitations: altered mental status History of Present Illness: Ms. Sanchez is a 76-year-old lady with history of dementia resides at senior living presenting to the emergency department due to fall. Exact circumstances are unclear however apparently the senior living read a lot of noise and found patient on the floor with hematoma to the forehead. History is otherwise limited by mental state. Review of Systems General: Reports: ROS unobtainable due to mental status PFSH ED PFSH: Medical History Acute encephalopathy Acute hypoactive delirium due to another medical condition D-dimer, elevated Dementia Drug dose changed Hypotension Hypoxia Pneumonia Sepsis Surgical History No pertinent past surgical history Social History Smoking and tobacco status: unknown if ever smoked Physical Exam Const: COMMON NORMALS: alert GENERAL APPEARANCE: cooperative and well developed HENMT: COMMON NORMALS: normocephalic HEAD & SCALP: normocephalic THROAT: posterior oropharynx normal OTHER: Left forehead hematoma. No wilkins signs or raccoon eyes. No hemotympanum. No otorrhea or rhinorrhea. Jaw alignment normal. Dentition baseline. No obvious bony step-offs. No septal hematoma. No evidence of ocular entrapment. Eye: COMMON NORMALS: conjunctivae normal CONJUNCTIVA: Yes conjunctivae normal SCLERA: sclerae normal Neck/C-Spine: COMMON NORMALS: supple GENERAL: Yes trachea midline Chest: OTHER: Mild anterior chest wall tenderness palpation. Resp: COMMON NORMALS: clear to auscultation bilaterally EFFORT & INSPECTION: Yes able to speak in complete sentences AUSCULTATION: clear to auscultation bilaterally Cardio: COMMON NORMALS: regular rate RATE: regular rate RHYTHM: abnormal rhythm irregularly irregular GI: COMMON NORMALS: Soft to palpation PALPATION: Yes Soft to palpation, Yes Tenderness to palpation present (GI), No Guarding due to palpation present (GI) and No Rigid due to palpation Extremity: GENERAL: Yes normal exam except as noted and No edema Neuro: COMMON NORMALS: moves all extremities SENSORIUM/ORIENTATION: Yes alert and Yes Orientation impaired Course Vital Signs: Vital signs: Vital Signs Temperature 97.7 F 10/14/22 22:40 Pulse Rate 88 10/15/22 01:30 Respiratory Rate 16 10/15/22 01:30 Blood Pressure 131/66 10/15/22 01:30 Pulse Oximetry 94 10/15/22 01:30 Oxygen Delivery Me thod 10/14/22 22:40 MDM - Fall Medical Decision Making 76-year-old lady presenting with fall of unclear circumstances. Patient has dementia which limits history. Head to toe exam performed as noted above. Patient is somewhat agitated and not redirectable. In order to obtain imaging to rule out potentially significant pathology anxiolysis was given. This end is a therapeutic effect. EKG shows atrial fibrillation with controlled ventricular response, no STEMI. Hematologic panel with no leukocytosis, hemoglobin is normal. Mild thrombocytopenia noted of uncertain etiology, definitely not in platelet transfusion range and aside from hematoma no evidence of active bleeding on exam. No significant metabolic abnormalities on metabolic panel. Urinalysis not concerning for urinary tract infection. CT head without intracranial pathology or bony injury. Cervical spine negative for acute fracture. CT chest abdomen pelvis without traumatic injury identified. Incidental findings noted discussed with patient. Most likely etiology of patient symptoms is follow-up with soft tissue injury. The results of ED evaluation were discussed with the patient including prescriptions and/or symptomatic cares (if applicable) including appropriate and responsible use, followup plan, and return precautions. The patient verbalized understanding and felt safe for discharge. Medical Records I reviewed the patient's medical records. Lab Data I reviewed the patient's lab results. 10/14/22 23:00 10/14/22 23:00 Radiology Impressions Cervical Spine CT 10/14/22 23:01 IMPRESSION: No acute findings. Chest/Abdomen/Pelvis CT 10/14/22 23:01 IMPRESSION: 1. Scattered inflammatory changes. 2. No pleural effusion or pneumothorax. 3. Cardiomegaly, prominent aorta, and coronary atherosclerosis. 4. No acute traumatic injuries in the chest. IMPRESSION: 1. Cholelithiasis. 2. Increased density of the liver can be seen with amiodarone treatment. Please correlate clinically. 3. Additional findings in the body of the report. 4. No acute traumatic injuries in the abdomen or the pelvis. Head CT 10/14/22 23:01 IMPRESSION: 1. Small left frontal scalp hematoma. 2. Stable head CT. No acute intracranial injury. Laboratory Results WBC 6.7 10^3/uL (4.0-10.0) 10/14/22 23:00 RBC 4.38 10^6/uL (4.1-5.3) 10/14/22 23:00 Hgb 14.2 g/dL (11.5-15.3) 10/14/22 23:00 Hct 43.9 % (37.0-47.0) 10/14/22 23:00 MCV 100.2 fl (81-99) H 10/14/22 23:00 MCH 32.4 pg (28.0-34.0) 10/14/22 23: MCHC 32.3 g/dL (30.0-36.0) 10/14/22 23:00 RDW 11.4 % (12.1-15.1) L 10/14/22 23:00 Plt Count 120 10^3/cmm (130-400) L 10/14/22 23:00 MPV 12.8 fL (7.4-10.4) H 10/14/22 23:00 Neut % (Auto) 65.7 % 10/14/22 23:00 Lymph % (Auto) 24.6 % 10/14/22 23:00 [place] % (Auto) 7.5 % 10/14/22 23:00 Eos % (Auto) 1.5 % 10/14/22 23:00 Baso % (Auto) 0.4 % 10/14/22 23:00 Neut # (Auto) 4.38 10^3/uL (1.8-7.7) 10/14/22 23:00 Lymph # (Auto) 1.6 10^3/uL (0.8-4.8) 10/14/22 23:00 [place] # (Auto) 0.5 10^3/uL (0.2-0.9) 10/14/22 23:00 Eos # (Auto) 0.1 10^3/uL (0.0-0.8) 10/14/22 23:00 Baso # (Auto) 0.0 10^3/uL (0.0-0.1) 10/14/22 23:00 Nucleated RBC % (auto) 0 % 10/14/22 23:00 Nucleated RBCs # 0.0 /100WBC 10/14/22 23:00 Sodium 137 mmol/L (136-145) 10/14/22 23:00 Potassium 4.8 mmol/L (3.5-5.1) 10/14/22 23:00 Chloride 98 mmol/L (98-107) 10/14/22 23:00 Carbon Dioxide 29 mmol/L (22-29) 10/14/22 23:00 Anion Gap 14.8 (5-19) 10/14/22 23:00 BUN 16 mg/dL (8-23) 10/14/22 23:00 Creatinine 0.5 mg/dL (0.5-0.9) 10/14/22 23: GFR Calculation Not Reportable 10/14/22 23: Glucose 114 mg/dL (65-115) 10/14/22 23: Calculated Osmolality 286 mOsm/kg (285-295) 10/14/22 23: Calcium 9.0 mg/dL (8.5-10.5) 10/14/22 23:00 Total Bilirubin 0.4 mg/dL (0.15-1.2) 10/14/22 23:00 AST 27 U/L (0-32) 10/14/22 23:00 ALT 21 U/L (0-33) 10/14/22 23:00 Alkaline Phosphatase 116 U/L (35-105) H 10/14/22 23: Total Protein 7.3 g/dL (6.6-8.7) 10/14/22 23: Albumin 4.1 g/dL (3.5-5.2) 10/14/22 23: Globulin 3.2 g/dL (1.3-4.6) 10/14/22 23: Urine Color Yellow (Yellow) 10/14/22: Urine Appearance Clear (CLEAR) 10/14/22: Urine pH 7 (5-7) 10/14/22: Ur Specific [place] 1.015 (1.005-1.030) 10/14/22: Urine Protein Neg (Negative) 10/14/22 Urine Glucose (UA) Norm (Normal) 01/09/23 23:27 Urine Ketones Negative (Negative) 10/14/22 23:27 Urine Blood Trace (Negative) H 10/14/22 23:27 Urine Nitrate Negative (Negative) 10/14/22 23:27 Urine Bilirubin Neg (Negative) 10/14/22 23:27 Urine Urobilinogen Norm mg/dL (Negative) 10/14/22 23:27 Ur Leukocyte Esterase Negative (Negative) 10/14/22 23:27 Urine RBC 0-4 /hpf (0-2) H 10/14/22 23:27 Urine WBC None /hpf (0-5) 10/14/22 23:27 Ur Squamous Epith Cells 0-4 /hpf (0-5) H 10/14/22 23:27 Amorphous Sediment 2+ /hpf 10/14/22 23:27 Urine Bacteria Trace /hpf (NONE) 10/14/22 23:27 Discharge Plan Discharge Patient Disposition: Home Clinical Impression: Concussion with loss of consciousness, Facial hematoma, Thrombocytopenia Condition: Stable Prescriptions: No Action docusate sodium 50 mg/5 mL Liquid 50 mg PO BID ketoconazole 2 % cream See Rx Instructions .ROUTE .COMPLEX Rx Instructions: topically APPLY BARRIER CREAM TO BURROCK[place] TID AND PRN fluticasone propionate 50 mcg/actuation [place],Suspension 1 spray INTRANASAL DAILY Rx Instructions: 1 SPRAY EACH NOSTRIL, DAILY Tylenol 325 mg Tablet 325 mg PO QID PRN (Reason: Pain) citalopram 10 mg tablet 10 mg PO DAILY hydrocodone-acetaminophen 5-325 mg tablet 1 tab PO Q6H lorazepam 0.5 mg tablet 0.5 mg PO Q6H neomycin-polymyxin B-dexameth 3.5mg/mL-10,000 unit/mL-0.1 % drops,suspension 2 drp ophthalmic (eye) TID Fleet Enema 19-7 gram/118 mL Enema 197 ml SD DAILY PRN (Reason: Constipation) Miralax 17 gram/dose Powder 17 g PO DAILY fentanyl 75 mcg/hr patch 72 hour 1 patch transdermal Q3D Discharge Orders: Discharge ED (Routine); Ordered 10/15/22 Ordered By: Jonn Horowitz Referrals: Issa Clifton, [Primary Care Provider] - Discharge Diet: Usual diet Discharge Activity: Increase activity as tolerated Patient Instructions: Concussion (ED), Hematoma (ED) Activity Restrictions/Additional Instructions: Thank you for visiting the emergency department. You were seen and evaluated for fall. The exact cause of your fall is unclear. No acute internal injuries or broken bones were identified on imaging. Treatment for pain related to this fall is supportive. You may use [id number] medications such as acetaminophen and ibuprofen for pain however please do not exceed the daily recommended dosage as listed on the packaging and please keep in mind that many namebrand medications contain the same active ingredients. Please avoid these medications if previously instructed to do so by another physician due to other underlying medical condition. Please follow-up with your primary care provider. Return to the emergency department for uncontrolled symptoms or anything else that you are concerned about and feel needs emergency department evaluation. You have numerous incidental findings on your imaging which are most likely age-related however should be followed up by your primary care provider. Coding Level of Care Code ED Application Defense Manager for Tyrell Moore
--- NOTE | 2022-10-14 22:47 | ECG_ITS ---
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 Measurements Intervals [place] Rate: 71 P: 0 ID: 0 QRS: 73 QRSD: 96 T: 59 QT: 372 QTc: 407 Interpretive Statements ATRIAL FIBRILLATION Compared to ECG 01/22/2020 15:00:59 Ventricular premature complex(es) no longer present Aberrant conduction of supraventricular beat(s) no longer present Electronically Signed On 10-15-2022 11:55:34 ROASTER HELPER by Julio Nick M.D. [id number]
--- NOTE | 2022-10-14 23:01 | CTR_ITS ---
PROCEDURE INFORMATION: Exam: CT Head Without Contrast Exam date and time: 10/14/2022 11:37 PM Age: 76 years old Clinical indication: Injury or trauma; Blunt trauma (contusions or hematomas); Patient HX: Patient from alf for unwitnessed fall. Found by staff on floor unresponsive. Hematoma to left forehead. ; Additional info: Fall, head trauma, AMS TECHNIQUE: Imaging protocol: Computed tomography of the head without contrast. Radiation optimization: All CT scans at this facility use at least one of these dose optimization techniques: automated exposure control; mA and/or kV adjustment per patient size (includes targeted exams where dose is matched to clinical indication); or iterative reconstruction. COMPARISON: CT head wo con* [id number] 02/15/2022 7:05 AM RADIATION DOSE METRICS: Total DLP (mGy-cm): 681.98 FINDINGS: Brain: Moderate stable involutional changes of the white matter and volume loss of the brain, commensurate with age. Cerebral ventricles: Stable ventricular size with stable ex vacuo prominence. Stable bilateral mesial temporal lobe volume loss with stable prominence of the bilateral temporal horns, [id number]-left. Paranasal sinuses: Visualized sinuses are unremarkable. No fluid levels. Mastoid air cells: Trace left mastoid effusion. Bones/joints: Unremarkable. No acute fracture. Soft tissues: Small left-sided frontal scalp soft tissue hematoma. CT/CT head wo con* [id number] IMPRESSION: 1. Small left frontal scalp hematoma. 2. Stable head CT. No acute intracranial injury.
--- NOTE | 2022-10-14 23:01 | CTR_ITS ---
PROCEDURE INFORMATION: Exam: CT Chest Without Contrast; Diagnostic Exam date and time: 10/14/2022 11:44 PM Age: 76 years old Clinical indication: Injury or trauma; Generalized; Blunt trauma (contusions or hematomas); Patient HX: Patient from group home for unwitnessed fall. Found by staff on floor unresponsive. ; Additional info: Fall, head trauma, AMS TECHNIQUE: Imaging protocol: Diagnostic computed tomography of the chest without contrast. Radiation optimization: All CT scans at this facility use at least one of these dose optimization techniques: automated exposure control; mA and/or kV adjustment per patient size (includes targeted exams where dose is matched to clinical indication); or iterative reconstruction. COMPARISON: CT angio chest PE protcl [id number] 12/18/2021 5:13 PM RADIATION DOSE METRICS: Total DLP (mGy-cm): 511.93 FINDINGS: Lungs: Few scattered patchy airspace opacities and linear opacities in both lungs are nonspecific and may represent atelectasis, inflammation, or infection. Suggestion of slight background hyperinflation. Mild bronchial wall thickening. No consolidation. No masses. Pleural spaces: Unremarkable. No pneumothorax. No pleural effusion. Heart: Unremarkable. No cardiomegaly. No pericardial effusion. Lymph nodes: Unremarkable. No enlarged lymph nodes. Vasculature: The main pulmonary artery is dilated compatible with pulmonary hypertension. The ascending thoracic aorta measures approximally 4.2 cm. There are atherosclerotic calcifications of the coronary arteries. There are calcifications of the aortic root. There is cardiomegaly and left atrial enlargement. Bones/joints: There are degenerative changes of the thoracic spine. There are multilevel neural foraminal stenosis. No acute fracture. Soft tissues: Unremarkable. PROCEDURE INFORMATION: Exam: CT Abdomen And Pelvis Without Contrast Exam date and time: 10/14/2022 11:44 PM Age: 76 years old Clinical indication: Injury or trauma; Generalized; Blunt trauma (contusions or hematomas); Patient HX: Patient from group home for unwitnessed fall. Found by staff on floor unresponsive. ; Additional info: Fall, head trauma, AMS TECHNIQUE: Imaging protocol: Computed tomography of the abdomen and pelvis without contrast. Radiation optimization: All CT scans at this facility use at least one of these dose optimization techniques: automated exposure control; mA and/or kV adjustment per patient size (includes targeted exams where dose is matched to clinical indication); or iterative reconstruction. COMPARISON: [place] [id number] 11/03/2019 8:25 PM RADIATION DOSE METRICS: Total DLP (mGy-cm): 511.93 FINDINGS: Liver: Evaluation of the liver is limited due to lack of contrast. Mild hyperattenuation of the liver can be seen with amiodarone therapy. No large hepatic mass is identified. Gallbladder and bile ducts: There is a large calcified, layered gallbladder stone. No ductal dilation. Pancreas: The pancreas is mildly atrophic. No ductal dilation. Spleen: Normal. No splenomegaly. Adrenal glands: Normal. No mass. Kidneys and ureters: The kidneys contain no calcified renal stones.. No hydronephrosis. Stomach and bowel: Unremarkable. No obstruction. Mild mucosal thickening of the small bowel. The large bowel contains fecal matter and gases. The rectum contains loads of fecal matter and gases, concerning for constipation. Appendix: The appendix can not be well visualized. Intraperitoneal space: Unremarkable. No free air. No significant fluid collection. Vasculature: Minimal atherosclerotic calcifications of the abdominal aorta and its branches. No abdominal aortic aneurysm. Lymph nodes: No enlarged lymph nodes by CT size criteria. Urinary bladder: Thickening of the bladder wall. Reproductive: No masses are identified. Bones/joints: There are degenerative changes of the spine. There are degenerative changes of the SI joints. Chronic fracture of the L1 vertebral body with loss of 30% of the vertebral body height. No significant retropulsion. No acute fracture. Soft tissues: Thickened soft tissues extends from the region of the nipple and areola to the breast tissues on the right side. Please correlate with results of mammography. Rounded stack of small foci of calcifications in the region of the umbilicus with associated soft tissue thickening. CT/CT chest [facility] [id number] IMPRESSION: 1. Scattered inflammatory changes. 2. No pleural effusion or pneumothorax. 3. Cardiomegaly, prominent aorta, and coronary atherosclerosis. 4. No acute traumatic injuries in the chest. IMPRESSION: 1. Cholelithiasis. 2. Increased density of the liver can be seen with amiodarone treatment. Please correlate clinically. 3. Additional findings in the body of the report. 4. No acute traumatic injuries in the abdomen or the pelvis.
--- NOTE | 2022-10-14 23:01 | CTR_ITS ---
PROCEDURE INFORMATION: Exam: CT Cervical Spine Without Contrast Exam date and time: 10/14/2022 11:41 PM Age: 76 years old Clinical indication: Injury or trauma; Blunt trauma; Patient HX: Patient from [facility] for unwitnessed fall. Found by staff on floor unresponsive. ; Additional info: Fall, head trauma, AMS TECHNIQUE: Imaging protocol: Computed tomography of the cervical spine without contrast. Radiation optimization: All CT scans at this facility use at least one of these dose optimization techniques: automated exposure control; mA and/or kV adjustment per patient size (includes targeted exams where dose is matched to clinical indication); or iterative reconstruction. COMPARISON: CT cervical spin wo con* [id number] 11/03/2019 8:22 PM RADIATION DOSE METRICS: Total DLP (mGy-cm): 169.77 FINDINGS: Bones/joints: No acute fracture. Normal alignment. Moderate multilevel degenerative disc disease. No severe spinal canal stenosis. Lungs: Biapical scarring. Soft tissues: Anatomic variant retropharyngeal course of the bilateral cervical carotids. CT/CT cervical spin wo con* [id number] IMPRESSION: No acute findings.
[2022-10-14] MEDS: haloperidol inj 5 mg/mL INJ 1 mL 2 MG IVP (23:18)
[2022-10-14 23:37] LABS: Basophils % 0.4 %; Eosinophils # 0.1 10^3/uL (0.0-0.8); Eosinophils % 1.5 %; Hematocrit 43.9 % (37.0-47.0); Hemoglobin 14.2 g/dL (11.5-15.3); Lymphocytes # 1.6 10^3/uL (0.8-4.8); Lymphocytes % 24.6 %; Mean Corpuscular HGB Conc 32.3 g/dL (30.0-36.0); Mean Corpuscular Hemoglobin 32.4 pg (28.0-34.0); Mean Corpuscular Volume 100.2 fl (81-99); Mean Platelet Volume 12.8 fL (7.4-10.4); Monocytes # 0.5 10^3/uL (0.2-0.9); Monocytes % 7.5 %; Neutrophils # 4.38 10^3/uL (1.8-7.7); Neutrophils % 65.7 %; Nucleated Red Blood Cells % 0 %; Platelet Count 120 10^3/cmm (130-400); Red Blood Count 4.38 10^6/uL (4.1-5.3); Red Cell Distribution Width 11.4 % (12.1-15.1); White Blood Count 6.7 10^3/uL (4.0-10.0)
[2022-10-14 23:43] LABS: Glucose Urine UA Norm (Normal); Ketones Urine Negative (Negative); Protein Urine Neg (Negative); Specific Gravity, Urine 1.015 (1.005-1.030); Urine Appearance Clear (CLEAR); Urine Color Yellow (Yellow); pH Urine 7 (5-7)
[2022-10-14 23:44] LABS: Add Urine Microscopic? YES; Bilirubin Urine Neg (Negative); Blood Urine Trace (Negative); Leukocyte Esterase Urine Negative (Negative); Nitrate Urine Negative (Negative); Urobilinogen Urine Norm (Negative)
[2022-10-15 00:01] LABS: Add Urine Culture? No; Amorphous Sediment Urine 2+ /hpf; Bacteria Urine TRACE /hpf; RBC Urine 0-4 /hpf (0-2); Squamous Epithelial Cell Urine 0-4 /hpf (0-5)
[2022-10-15 00:03] LABS: Alanine Aminotransferase 21 U/L (0-33); Albumin Level 4.1 g/dL (3.5-5.2); Alkaline Phosphatase 116 U/L (35-105); Blood Urea Nitrogen 16 mg/dL (8-23); Carbon Dioxide 29 mmol/L (22-29); Chloride 98 mmol/L (98-107); Globulin 3.2 g/dL (1.3-4.6); Glucose 114 mg/dL (65-115); Osmolality Calculated 286 mOsm/kg (285-295); Sodium 137 mmol/L (136-145); Total Bilirubin 0.4 mg/dL (0.15-1.2); Total Protein 7.3 g/dL (6.6-8.7)
[2022-10-15 00:12] LABS: Anion Gap 14.8 (5-19); Aspartate Amino Transferase 27 U/L (0-32); Potassium 4.8 mmol/L (3.5-5.1)
[2022-10-15 00:29] VITALS: BP 123/61; PULSE 83; RESP 18; O2SAT 96
[2022-10-15 01:30] VITALS: BP 131/66; PULSE 88; RESP 16; O2SAT 94
--- NOTE | 2022-10-15 02:30 | PC.NURSE ---
called report to Vince Fraser
== END 2022-10-15 04:56 | disposition home or self-care (01) ==
PROVIDERS: Emergency Provider Emergency Medicine; PCP Internal Medicine
DX: S06.0X9A Concussion with loss of consciousness of unspecified duration, initial encounter (principal); S00.83XA Contusion of other part of head, initial encounter; D69.6 Thrombocytopenia, unspecified; F03.90 Unspecified dementia, unspecified severity, without behavioral disturbance, psychotic disturbance, mood disturbance, and anxiety; W19.XXXA Unspecified fall, initial encounter; Y92.129 Unspecified place in nursing home as the place of occurrence of the external cause
CPT/HCPCS: 70450; 71250; 72125; 74176; 80053; 81001; 81003; 85025; 93005; 96374; 99285; J1630

== ENCOUNTER 2025-04-13 06:02 | Inpatient (IN) | payer MEDICARE, OTHER, MEDICAID, SELFPAY ==
[2025-04-13] VITALS (9 sets, daily range): BP systolic 90–125; BP diastolic 46–78; PULSE 81–114; RESP 18–32; TEMP 36.1–37; O2SAT 88–100; BMI 22.8
--- NOTE | 2025-04-13 06:06 | XRR_ITS ---
PROCEDURE INFORMATION: Exam: XR Chest Exam date and time: 04/13/2025 6:38 AM Age: 79 years old Clinical indication: Shortness of breath; Additional info: SOB TECHNIQUE: Imaging protocol: Radiologic exam of the chest. Views: 1 view. COMPARISON: [place] [id number] 10/14/2022 11:44 PM FINDINGS: Lungs: There is volume loss in the right chest. Increased interstitial markings are noted with patchy airspace disease worse in the right upper lobe. Pleural spaces: Unremarkable. No pleural effusion. No pneumothorax. Heart/Mediastinum: Unremarkable. No cardiomegaly. Bones/joints: The bones are osteopenic. XR/XR chest 1V portable [id number] IMPRESSION: Pneumonia.
--- NOTE | 2025-04-13 06:06 | ECG_ITS ---
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 Measurements Intervals [place] Rate: 110 P: 0 MA: 0 QRS: 19 QRSD: 83 T: 40 QT: 336 QTc: 455 Interpretive Statements ATRIAL FIBRILLATION WITH RAPID VENTRICULAR RESPONSE WITH ABERRANT CONDUCTION OR VENTRICULAR PREMATURE COMPLEXES ABNORMAL RHYTHM ECG Compared to ECG 10/14/2022 22:47:42 Ventricular premature complex(es) now present Aberrant conduction of supraventricular beat(s) now present Electronically Signed On 04-13-2025 20:18:02 CDT by Kamron Langford M.D. [email or web address]
--- NOTE | 2025-04-13 06:06 | CTR_ITS ---
PROCEDURE INFORMATION: Exam: CT Head Without Contrast Exam date and time: 04/13/2025 6:52 AM Age: 79 years old Clinical indication: Altered mental status/memory loss and other: Seizure TECHNIQUE: Imaging protocol: Computed tomography of the head without contrast. Radiation optimization: All CT scans at this facility use at least one of these dose optimization techniques: automated exposure control; mA and/or kV adjustment per patient size (includes targeted exams where dose is matched to clinical indication); or iterative reconstruction. COMPARISON: CT head wo con* [id number] 10/14/2022 11:37 PM RADIATION DOSE METRICS: Total DLP (mGy-cm): 1082.15 FINDINGS: Brain: There is no mass effect, midline shift, acute hemorrhage, extra-axial fluid collection or acute lobar infarct. Extensive hemispheric white matter hypodensity represents chronic microvascular ischemic change. Cerebral ventricles: There is atrophic dilatation of the lateral ventricles, especially the atrium, temporal and occipital horns, right greater than left. Paranasal sinuses: Visualized sinuses are unremarkable. No fluid levels. Mastoid air cells: Visualized mastoid air cells are well aerated. Bones: Unremarkable. No acute fracture. Soft tissues: Unremarkable. The study is degraded by motion artifact. CT/CT head wo con* [id number] IMPRESSION: No acute intracranial process.
--- OUTSIDE RECORDS SUMMARY | 2025-04-13 06:09 | XMS_ITS | Encounter Summary ---
Author Organization [facility] Address [address] [place] [address] Care Team Providers Care Printing Supervisor Name Role Phone Unavailable Primary Care Provider Unavailabl e Encounter Details Date Type Department Care Team (Late st Contact Info) Description 02/02/[address] 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 No / Unsure 02/05/2020 7:39 PM CDT documented as of this encounter Plan of Treatment Not on file documented as of this encounter Procedures Procedure Name Priority Date/Time Associated Diagnosis Comments T4 TOTAL Stat 02/02/2020 8:35 AM CDT Essential (primary) hypertension TSH Stat 02/02/2020 8:35 AM CDT Essential (primary) hypertension documented in this encounter Results * T4 TOTAL (02/02/2020 8:35 AM CDT) T4 TOTAL 10.3 4.5 - 11.7 ug/dL 02/02/2020 3:31 PM CDT [facility] Blood 02/02/2020 8:35 AM CDT 02/02/2020 3:02 PM CDT us Shayla Guzman MD CHEMISTRY ORDERABLES F inal Result Performing Organization Address City/[facility]/ZIP Co de Phone Number [facility] CLIA# [id number] [address] [place] [address] * (ABNORMAL) TSH (02/02/2020 8:35 AM CDT) Pathologist [facility] TSH 4.63(H) 0.27 - 4.20 uIU/mL 02/02/2020 3:30 PM CDT [facility] Blood 02/02/2020 8:35 AM CDT 02/02/2020 3:02 PM CDT us Shayla Guzman MD CHEMISTRY ORDERABLES F inal Result Performing Organization Address City/[facility] Co de Phone Number [facility] CLIA# [id number] [address] [place] [address] documented in this encounter Visit Diagnoses Diagnosis Essential (primary) hypertension Unspecified essential hypertension documented in this encounter
--- OUTSIDE RECORDS SUMMARY | 2025-04-13 06:09 | XMS_ITS | Clinical Summary ---
Author Organization Address [address] Berger: Epic Prelude ADT ERIC ANDRADE [address] Care Team Providers Care Crew Leader Gluing Name Role Phone Unavailable Primary Care Provider Unavailabl e Allergies Active Allergy Reactions Criticality Noted Date Comments Penicillins Hives High 01/31/2020 Medications docusate sodium (COLACE) 50 mg/5 mL solution Take 100 mg by mouth 2 times daily. 0 Active loratadine (CLARITIN) 10 mg tablet Take 10 mg by mouth daily. 0 Active fluticasone propionate (FLONASE) 50 mcg/spray [place], Suspension nasal inhaler Administer 2 Sprays in each nostril daily. 0 Active mirtazapine (REMERON SolTab) 15 mg Tablet, Rapid Dissolve Place 15 mg inside cheek daily at bedtime. 0 Active magnesium hydroxide (MILK OF MAGNESIA) 400 mg/5 mL suspension Take 30 mL by mouth 1 time daily as needed for Constipation. 0 Active furosemide (LASIX) 40 mg tablet Take 40 mg by mouth daily. 0 Active bisacodyL (DULCOLAX) 10 mg Suppository Insert 10 mg by rectum daily. 0 Active polyethylene glycol 3350 (MIRALAX) 17 gram/dose Powder Take 17 Grams by mouth daily. Dissolve in 8 ounces of fluid and drink entire liquid 0 Active sennosides-docusa te sodium (SENNA-S) 8.6-50 mg tablet Take 1 Tablet by mouth 2 times daily. 0 Active risperiDONE (RisperDAL) 1 mg/mL Solution Take 0.5 mg by mouth 2 times daily. 0 Active ipratropium-albut Oriana (DUONEB) 0.5 mg-3 mg(2.5 mg base)/3 mL Solution for Nebulization Take 3 mL by inhalation. 0 Active risperiDONE (RisperDAL) 1 mg/mL Solution Take 3 mg by mouth daily. 0 Active potassium chloride (KLOR-CON) 20 mEq Extended Release tablet Take 20 mEq by mouth 2 times daily. 0 Active acetaminophen (TYLENOL) 325 mg tablet Take 650 mg by mouth every 6 hours as needed. 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 02/10 Social History Tobacco Use Types Packs/Day Years Used Date Smoking Tobacco: Never Smokeless Tobacco: Never Alcohol Use Standard Drinks/Week Comments No 0 (1 standard drink = 0.6 oz pur e alcohol) Comments Unknown Sex and Gender Information Value Date Recorded Sex Assigned at Not on file 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 Gender Identity Not on file Sexual Orientation Not on file Last Filed Vital Signs Vital Sign Reading Time Taken Comments Blood Pressure 91/47 02/29/2020 10:36 AM CDT Pulse 89 02/05/2020 9:38 PM CDT Temperature 36 C (96.8 F) 02/29/2020 7:57 AM CDT Respiratory Rate 18 02/29/2020 10:36 AM CDT Oxygen Saturation - - Inhaled Oxygen Concentration - - Weight 85 kg (187 lb 6.4 oz) 02/29/2020 7:57 AM CDT Height 162.6 cm (5' 4 ) 12/12/2018 3:02 PM FITNESS ATTENDANT Body Mass Index 32.17 12/12/2018 3:02 PM FITNESS ATTENDANT Plan of Treatment Health Maintenance Due Date Last Done Comments DTAP/TDAP/TD VACCINES (1 - Tdap) 12/06/1963 PNEUMOCOCCAL VACCINE 50+ YEARS (1 of 2 - PCV) 12/05/18 63 ZOSTER VACCINE (1 of 2) 1994 OSTEOPOROSIS SCREENING 2009 RSV VACCINE (60+ or ) (1 - 1-dose 75+ series) 12/06/2019 INFLUENZA VACCINE (#1) 2025 Advance Directives For more information, please contact: [phone] Documents on File Type Date Recorded Patient Oncology Social Worker Expl anation Advance Directive POA 03/01/2020 9:11 AM [facility] DNR Order
--- OUTSIDE RECORDS SUMMARY | 2025-04-13 06:09 | XMS_ITS | Clinical Summary ---
Author Organization [facility] Address [address] [place] [address] Phone Care Team Providers Care Training Personnel Supervisor Name Role Phone Unavailable Primary Care Provider Unavailabl e Allergies Active Allergy Reactions Criticality Noted Date Comments Penicillins Hives High 01/31/2020 Medications ipratropium-albut Oriana (DUONEB) 0.5 mg-3 mg(2.5 mg base)/3 mL Solution for Nebulization Take 3 mL by inhalation. Active bisacodyL (DULCOLAX) 10 mg Suppository Insert 10 mg by rectum daily. Active polyethylene glycol 3350 (MIRALAX) 17 gram/dose Powder Take 17 Grams by mouth daily. Dissolve in 8 ounces of fluid and drink entire liquid Active sennosides-docusa te sodium (SENNA-S) 8.6-50 mg tablet Take 1 Tablet by mouth 2 times daily. Active magnesium hydroxide (MILK OF MAGNESIA) 400 mg/5 mL suspension Take 30 mL by mouth 1 time daily as needed for Constipation. Active fluticasone propionate (FLONASE) 50 mcg/spray [place], Suspension nasal inhaler Administer 2 Sprays in each nostril daily. Active loratadine (CLARITIN) 10 mg tablet Take 10 mg by mouth daily. Active acetaminophen (TYLENOL) 325 mg tablet Take 650 mg by mouth every 6 hours as needed. Active potassium chloride (KLOR-CON) 20 mEq Extended Release tablet Take 20 mEq by mouth 2 times daily. Active mirtazapine (REMERON SolTab) 15 mg Tablet, Rapid Dissolve Place 15 mg inside cheek daily at bedtime. Active furosemide (LASIX) 40 mg tablet Take 40 mg by mouth daily. Active risperiDONE (RisperDAL) 1 mg/mL Solution Take 0.5 mg by mouth 2 times daily. Active risperiDONE (RisperDAL) 1 mg/mL Solution Take 3 mg by mouth daily. Active docusate sodium (COLACE) 50 mg/5 mL solution Take 100 mg by mouth 2 times daily. 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 Gender Identity Not on file Sexual Orientation Not on file Last Filed Vital Signs Vital Sign Reading Time Taken Comments Blood Pressure 91/47 02/29/2020 10:36 AM CDT Pulse 89 02/05/2020 9:38 PM CDT Temperature 36 C (96.8 F) 02/29/2020 7:57 AM CDT Respiratory Rate 18 02/29/2020 10:36 AM CDT Oxygen Saturation 95% 02/29/2020 10:36 AM CDT Inhaled Oxygen Concentration - - Weight 85 kg (187 lb 6.4 oz) 02/29/2020 7:57 AM CDT Height 162.6 cm (5' 4 ) 12/12/2018 3:02 PM REGISTRATION CLERK Body Mass Index 32.17 12/12/2018 3:02 PM REGISTRATION CLERK Plan of Treatment Health Maintenance Due Date Last Done Comments DTAP/TDAP/TD VACCINES (1 - Tdap) 12/06/1963 PNEUMOCOCCAL VACCINE 50+ YEARS (1 of 2 - PCV) 12/05/18 63 ZOSTER VACCINE (1 of 2) 1994 OSTEOPOROSIS SCREENING 2009 RSV VACCINE (60+ or ) (1 - 1-dose 75+ series) 12/06/2019 INFLUENZA VACCINE (#1) 2025 Insurance MEDICARE PART A AND B [employer] MEDICAID [place] Advance Directives For more information, please contact: [phone] Documents on File Type Date Recorded 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
--- OUTSIDE RECORDS SUMMARY | 2025-04-13 06:09 | XMS_ITS | Encounter Summary ---
Author Organization [facility] Address [address] [place] [address] Care Team Providers Care Examination Scorer Name Role Phone Unavailable Primary Care Provider Unavailabl e Encounter Details Date Type Department Care Team (Late st Contact Info) Description 03/02/2020 Lab Requisition [facility] Laboratory Services [address] [place] [address] Shayla Guzman MD NO ADDRESS ON FILE Social History Tobacco Use Types Packs/Day Years Used Date Smoking Tobacco: Never Smokeless Tobacco: Never Alcohol Use Standard Drinks/Week Comments No 0 (1 standard drink = 0.6 oz pur e alcohol) Comments No Sex and Gender Information Value Date Recorded Sex Assigned at Not on file 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 No / Unsure 02/29/2020 8:31 AM CDT documented as of this encounter Plan of Treatment Not on file documented as of this encounter Procedures Procedure Name Priority Date/Time Associated Diagnosis Comments TSH Stat 03/02/2020 8:06 AM CDT documented in this encounter Results * (ABNORMAL) TSH (03/02/2020 8:06 AM CDT) TSH 5.01(H) 0.27 - 4.20 uIU/mL 03/02/2020 4:12 PM CDT [facility] Blood Collection / Unknown 03/02/2020 8:06 AM CDT 03/02/2020 3:46 PM CDT us Shayla Guzman MD CHEMISTRY ORDERABLES F inal Result [facility] CLIA# [id number] [address] [place] [address] documented in this encounter Visit Diagnoses Not on filedocumented in this encounter
--- OUTSIDE RECORDS SUMMARY | 2025-04-13 06:09 | XMS_ITS | Patient Health Record ---
Author Organization [facility] Address [address] [place] [address] Support Name Relationship Address Phone Osei Sanchez Emergency Contact Unknown Unavai Marah Romero Guarantor Unknown [phone] Reason For Referral No Information Problems Problem Type SNOMED Code ICD Code Onset Dates Problem Status W/U Status Risk Notes Problem Wheezing (21492915) Wheezing (786.07) 12/17/19 19 Problem resolved confirmed [id number] 911- Problem Screening for cardiovascular system disease (procedure) (548141490) Screening for cardiovascular conditions (V81.2) 12/17/19 19 Problem resolved confirmed [id number] 911- Problem Left upper quadrant pain (672517513) Left upper quadrant abdominal pain (789.02) 12/17/19 19 Problem resolved confirmed [id number] 911- Problem Acute upper respiratory infection (09303441) Upper respiratory illness (465.8) 12/17/19 Problem resolved confirmed [id number] 911- Plan Of Treatment No Information
--- OUTSIDE RECORDS SUMMARY | 2025-04-13 06:09 | XMS_ITS | Encounter Summary ---
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 Name Role Phone Unavailable Primary Care Provider Unavailabl e Encounter Details Date Type Department Care Team (Late st Contact Info) Description 03/15/2020 Lab Requisition [facility] [address] [place] [address] Shayla Guzman MD NO ADDRESS ON FILE Social History Tobacco Use Types Packs/Day Years Used Date Smoking Tobacco: Never Smokeless Tobacco: Never Alcohol Use Standard Drinks/Week Comments No 0 (1 standard drink = 0.6 oz pur e alcohol) Comments No Sex and Gender Information Value Date Recorded Sex Assigned at Not on file Legal Sex Female 2:35 PM [employer]OUSING [employer] Gender Identity Not on file Sexual Orientation [...] Procedure Name Priority Date/Time Associated Diagnosis Comments 2019 NOVEL CORONAVIRUS (COVID-19) PCR DETECTION Stat 03/15/2020 12:01 AM CDT documented in this encounter Results * 2019 NOVEL CORONAVIRUS (COVID-19) PCR DETECTION (03/15/2020 12:01 AM CDT) COVID-19 PCR NOT DETECTED NOT DETECTED 03/16/2020 1:09 PM CDT [facility] Comment: A Not Detected (negative) test result for this test means that SARS- CoV-2 RNA was not present in the specimen above the limit of detection. A negative result does not rule out the possibility of COVID-19 and should not be used as the sole basis for treatment or patient management decisions. If COVID-19 is still suspected, based on exposure history together with other clinical findings, re-testing should be considered in consultation with public health authorities. Laboratory test results should always be considered in the context of clinical observations and epidemiological data in making a final diagnosis and patient management decisions. Please review the Fact Sheets and FDA authorized labeling available for health care providers and patients using the following websites: [email or web address]/fact-[email or web address]/[email or web address]/ fact-sheet2 This test has been authorized by the FDA under an Emergency Use Authorization (EUA) for use by authorized laboratories. Due to the current public health emergency, [facility] is receiving a high volume of samples from a wide variety of swabs and media for COVID-19 testing. In order to serve patients during this public health crisis, samples from appropriate clinical sources are being tested. Negative test results derived from specimens received in non-commercially manufactured viral collection and transport media, or in media and sample collection kits not yet authorized by FDA for COVID-19 testing should be cautiously evaluated and the patient potentially subjected to extra precautions such as additional clinical monitoring, including collection of an additional specimen. Methodology: Nucleic Acid Amplification Test (NAAT) includes PCR or TMA Additional information about COVID-19 can be found at the [facility] website: [email or web address]. Upper Respiratory ENTIRE NASOPHARYNX / Unknown Collection / Unknown 03/15/2020 12:01 AM CDT 03/15/2020 2:46 PM CDT Narrative [facility] - 03/16/2020 1:09 PM CDT Performing Organization Information: Site ID: [place] Name: [facility] Address: [address] [address] [place] [address] Director: Osei Gaspar D.O., MPH us Shayla Guzman MD MICROBIOLOGY - GENERAL ORDERABLES Final Result [facility] [phone] documented in this encounter Visit Diagnoses Not on filedocumented in this encounter
--- NOTE | 2025-04-13 06:16 | ED_ITS ---
HPI - Seizure 2 General: Chief Complaint: Seizure Stated Complaint: seizure Time Seen by Provider: 04/13/25 06:04 Source: EMS Mode of arrival: EMS Limitations: altered mental status History of Present Illness: HPI Narrative: 79-year-old female is here [facility] per EMS prison staff witnessed her have a seizure lasting 1 to 2 minutes this morning. Patient has dementia is nonverbal at baseline. States that she is cyanotic and since seizure she is required oxygen. Patient's response full to painful stimuli but not able answer any questions. She did have 1 episode of vomiting Related Data Home Medications ?Medication ?Instructions ?Recorded ?Confirmed docusate sodium 50 mg/5 mL oral 50 mg PO BID 01/22/20 12/18/21 liquid fluticasone propionate 50 1 spray intranasal DAILY 12/18/21 mcg/actuation nasal spray,suspension ketoconazole 2 % topical cream See Rx Instructions .Ro [place] .COMPLEX 01/22/20 12/18/21 acetaminophen 325 mg tablet 325 mg PO QID PRN Pain 12/18/21 (Tylenol) citalopram 10 mg tablet 10 mg PO DAILY 12/18/21/02/24 fentanyl 75 mcg/hr transdermal 1 patch transdermal Q3D 12/18/21 12/18/21 patch hydrocodone 5 mg-acetaminophen 325 1 tab PO Q6H PAIN 0 12/18/21 12/18/21 mg tablet lorazepam 0.5 mg tablet 0.5 mg PO Q6H ANXIETY 12/18/21 [id number] 3.5 2 drp ophthalmic (eye) TID 12/18/21 12/18/21 mg/mL-10,000 unit/mL-0.1% eye drops polyethylene glycol 3350 17 17 g PO DAILY 12/18/21 gram/dose oral powder (Miralax) sodium phosphates 19 gram-7 197 ml MS DAILY PRN Consti pation 12/18/21 12/18/21 gram/118 mL enema (Fleet Enema) Allergies Allergy/AdvReac Type Severity Reaction Status Date / Time clindamycin Allergy Unknown Verified 10/14/22 22:46 Penicillins Allergy Unknown Verified 12/18/21 16:38 Review of Systems 2 General: Reports: ROS unobtainable due to mental status [facility] ED 2 PFSH: Medical History (Updated 04/13/25 @ 07:38 by Emma Cavanaugh MD) Acute hypoactive delirium due to another medical condition D-dimer, elevated Hypoxia Sepsis Hypotension Acute encephalopathy Drug dose changed Pneumonia Dementia Surgical History No pertinent past surgical history Social History Smoking and tobacco/nicotine status: unknown if used tobacco/nicotine Physical Exam 2 Const: COMMON NORMALS: negative for patient oriented x3 HENMT: COMMON NORMALS: normocephalic and atraumatic HEAD & SCALP: n ormocephalic and atraumatic Eye: COMMON NORMALS: conjunctivae normal CONJUNCTIVA: Yes conjunctivae normal Neck/C-Spine: COMMON NORMALS: full ROM and supple Chest: COMMONS NORMALS: normal inspection of the chest Resp: COMMON NORMALS: No retractions and No use of accessory muscles EFFORT & INSPECTION: Yes respiratory distress AUSCULTATION: rales Cardio: COMMON NORMALS: regular rate and No murmurs present (Cardio) RATE: regular rate RHYTHM: abnormal rhythm irregularly irregular Extremity: COMMON NORMALS: normal to inspection and full ROM Neuro: COMMON NORMALS: moves all extremities and no focal motor deficits; negative for patient oriented x3 Psych: COMMON NORMALS: mental status grossly normal, Normal thought process present and cooperative THOUGHT PROCESS: Normal thought process present Skin: COMMON NORMALS: no rashes or lesions noted and no wounds GENERAL SKIN EXAM: no rashes or lesions noted Course 2 Vital Signs: Vital signs: Vital Signs Temperature 97.0 F L 04/13/25 06:03 Pulse Rate 112 H 04/13/25 06:03 Respiratory Rate 32 H 04/13/25 06:03 Blood Pressure 119/78 04/13/25 06:03 Pulse Oximetry 88 L 04/13/25 06:03 Oxygen Delivery Me thod Room Air 04/13/25 06:03 MDM - Seizure MDM Narrative Medical decision making narrative: Patient presents here after a seizure she had vomiting 2 she likely had aspiration pneumonia x-ray does show pneumonia she is requiring oxygen here. She is at her baseline did give her antibiotics spoke to the hospitalist will admit. Lab Data 04/13/25 06:05 04/13/25 06:05 Labs: Radiology Impressions Chest X-Ray 04/13/25 06:06 IMPRESSION: Pneumonia. Head CT 04/13/25 06:06 IMPRESSION: No acute intracranial process. Laboratory Results WBC 11.50 10^3/uL (3.29-11.43) H 04/13/25 06:05 RBC 4.35 10^6/uL (3.85-5.65) 04/13/25 06:05 Hgb 13.90 g/dL (11.27-16.99) 04/13/25 06:05 Hct 43.6 % (36-47) 04/13/25 06:05 MCV 100.2 fl (85-98) H 04/13/25 06:05 MCH 32.0 pg (27-33) 04/13/25 06:05 MCHC 31.9 g/dL (30-55) 04/13/25 06:05 RDW 12.1 % (12.1-15.1) 04/13/25 06:05 Plt Count 179 10^3/cmm (157-399) 04/13/25 06:05 MPV 11.0 fL (7.4-10.4) H 04/13/25 06:05 Neut % (Auto) 88.4 % 04/13/25 06:05 Lymph % (Auto) 6.3 % 04/13/25 06:05 Wood % (Auto) 4.4 % 04/13/25 06:05 Eos % (Auto) 0.3 % 04/13/25 06:05 Baso % (Auto) 0.3 % 04/13/25 06:05 Neut # (Auto) 10.17 10^3/uL (1.8-7.7) H 04/13/25 06:05 Lymph # (Auto) 0.7 10^3/uL (0.8-4.8) L 04/13/25 06:05 Wood # (Auto) 0.5 10^3/uL (0.2-0.9) 04/13/25 06:05 Eos # (Auto) 0.0 10^3/uL (0.0-0.8) 04/13/25 06:05 Baso # (Auto) 0.0 10^3/uL (0.0-0.1) 04/13/25 06:05 Nucleated RBC % (auto) 0 % 04/13/25 06:05 Nucleated RBCs # 0.0 /100WBC 04/13/25 06:05 Sodium 142 mmol/L (136-145) 04/13/25 06:05 Potassium 3.8 mmol/L (3.5-5.1) 04/13/25 06:05 Chloride 103 mmol/L (98-107) 04/13/25 06:05 Carbon Dioxide 27 mmol/L (22-29) 04/13/25 06:05 Anion Gap 15.8 (5-19) 04/13/25 06:05 BUN 18 mg/dL (8-23) 04/13/25 06:05 Creatinine 0.7 mg/dL (0.5-0.9) 04/13/25 06:05 GFR Calculation Not Reportable 04/13/25 06:05 Glucose 225 mg/dL (65-115) H 04/13/25 06:05 Calculated Osmolality 303 mOsm/kg (285-295) H 04/13/25 06:05 Calcium 9.0 mg/dL (8.5-10.5) 04/13/25 06:05 Total Bilirubin 0.4 mg/dL (0.15-1.2) 04/13/25 06:05 AST 25 U/L (0-32) 04/13/25 06:05 ALT 18 U/L (0-33) 04/13/25 06:05 Alkaline Phosphatase 107 U/L (35-105) H 04/13/25 06:05 Total Protein 7.5 g/dL (6.6-8.7) 04/13/25 06:05 Albumin 3.9 g/dL (3.5-5.2) 04/13/25 06:05 Globulin 3.6 g/dL (1.3-4.6) 04/13/25 06:05 Amorphous Sediment Not Reportable 04/13/25 07:29 All radiology interpretation(s) finalized by discharge EKG Data EKG 1: Attestation: I personally reviewed and interpreted this EKG as follows: EKG interpretation date: 04/13/25 EKG interpretation time: 06:19 Interpretation: afib with rvr hr [address] elevation qrs 83 qtc 401 Discharge Plan Discharge Patient Disposition: Admitted As Inpatient Clinical Impression: Seizure, Pneumonia, Acute respiratory failure with hypoxia Condition: Stable Coding Level of Care Code ED Senior Outside Sales Representative for [employer]rell Moore
[2025-04-13 06:25] LABS: Hematocrit 43.6 % (36-47); Hemoglobin 13.90 g/dL (11.27-16.99); Mean Corpuscular HGB Conc 31.9 g/dL (30-55); Mean Corpuscular Hemoglobin 32.0 pg (27-33); Mean Corpuscular Volume 100.2 fl (85-98); Nucleated Red Blood Cells % 0 %; Platelet Count 179 10^3/cmm (157-399); Red Blood Count 4.35 10^6/uL (3.85-5.65); White Blood Count 11.50 10^3/uL (3.29-11.43)
[2025-04-13 06:47] LABS: Alanine Aminotransferase 18 U/L (0-33); Albumin Level 3.9 g/dL (3.5-5.2); Alkaline Phosphatase 107 U/L (35-105); Anion Gap 15.8 (5-19); Aspartate Amino Transferase 25 U/L (0-32); Blood Urea Nitrogen 18 mg/dL (8-23); Calcium 9.0 mg/dL (8.5-10.5); Carbon Dioxide 27 mmol/L (22-29); Chloride 103 mmol/L (98-107); Creatinine Clr Calc Pharmacy 52.3221; Globulin 3.6 g/dL (1.3-4.6); Glucose 225 mg/dL (65-115); Osmolality Calculated 303 mOsm/kg (285-295); Potassium 3.8 mmol/L (3.5-5.1); Sodium 142 mmol/L (136-145); Total Protein 7.5 g/dL (6.6-8.7)
[2025-04-13] MEDS: AZITHROMYCIN ADD-Vantage 500 MG in 0.9% NaCl ADD-Vantage 250 ML 250 MG IV (07:25)
[2025-04-13] MEDS: cefTRIAXone 1,000 mg SDV 1000 MG IVP (07:28)
--- NOTE | 2025-04-13 07:59 | PM.HP ---
Providers/Chief Complaint Primary Care Provider: Issa Clifton DO Chief Complaint: seizure History of Present Illness Marah Sanchez is a 79 year old patient with a history of advanced dementia and epilepsy who was brought from a long term to the emergency department after a witnessed generalized seizure lasting 1-2 minutes earlier today. Post-ictally she appeared cyanotic and required supplemental oxygen. On arrival she was minimally responsive, reacting only to painful stimuli. Vital signs showed atrial fibrillation with a rate of 110 bpm, respiratory rate 32 breaths/min, temperature 97 ?F, and oxygen saturation 88 % on room air. A head CT showed no acute intracranial process. Chest X-ray was suggestive of pneumonia (thought likely aspiration). WBC count reported as 11.5 ?10?/L. Urinalysis specimen was obtained via in-and-out catheter and is pending. Nursing staff note that the patient is normally non-verbal but typically more responsive and ?feisty? than at present. She is non-ambulatory, has marked lower-extremity contractures, and oxygenation improves when she is positioned on her side. Code status at the long term is DNR. confirms baseline non-verbal/non-ambulatory status and is unaware of prior strokes. Review of Systems General: Reports: ROS unobtainable due to mental status Medications/Allergies Home Medications ?Medication ?Instructions ?Recorded ?Confirmed ?Last Taken ?Type acetaminophen 325 mg tablet 325 mg PO QID PRN Pain 12/18/21 04/13/25 01/29/25 History (Tylenol) hydrocodone 5 mg-acetaminophen 325 1 - 2 tab PO Q4H PAIN 12/18/21 04/13/25 01/05/25 History mg tablet polyethylene glycol 3350 17 17 g PO DAILY 12/18/21 04/13/25 04/12/25 History gram/dose oral powder (Miralax) sodium phosphates 19 gram-7 197 ml ME DAILY PRN Constipation 12/18/21 04/13/25 Unknown History gram/118 mL enema (Fleet Enema) bisacodyl 10 mg rectal suppository 10 mg ME DAILY PRN Constipation 04/13/25 04/13/25 10/18/24 History (Dulcolax (bisacodyl)) fentanyl 100 mcg/hr transdermal See Rx Instructions .Route .COMPLEX 04/13/25 04/13/25 04/12/25 History patch fentanyl 25 mcg/hr transdermal See Rx Instructions .Route .COMPLEX 04/13/25 04/13/25 04/12/25 History patch levetiracetam 500 mg tablet 500 mg PO BID 04/13/25 04/13/25 04/12/25 History (Keppra) magnesium hydroxide 400 mg/5 mL 30 ml PO DAILY PRN Constipation 04/13/25 04/13/25 01/24/25 History oral suspension (Milk of Magnesia) Allergies Allergy/AdvReac Type Severity Reaction Status Date / Time clindamycin Allergy Unknown Verified 10/14/22 22:46 Penicillins Allergy Unknown Verified 12/18/21 16:38 PFSH Acute PFSH: Medical History Acute hypoactive delirium due to another medical condition D-dimer, elevated Hypoxia Sepsis Hypotension Acute encephalopathy Drug dose changed Pneumonia Dementia Surgical History No pertinent past surgical history Social History Smoking and tobacco/nicotine status: unknown if used tobacco/nicotine Vitals/I&O/Wt Last Vital Signs Temp 97.0 F L 04/13/25 06:03 Pulse 112 H 04/13/25 06:03 Resp 32 H 04/13/25 06:03 BP 119/78 04/13/25 06:03 Pulse Ox 88 L 04/13/25 06:03 O2 Del Method Room Air 04/13/25 06:03 Weight last 48 hrs Weight 62.233 kg Physical Exam Const: ORIENTATION/CONSCIOUSNESS: Yes patient obtunded HENMT: COMMON NORMALS: oropharynx normal Neck/C-Spine: COMMON NORMALS: no JVD Cardio: COMMON NORMALS: no JVD, regular rhythm, S1 normal heart sound present, S2 normal heart sound present and No murmurs present (Cardio) RATE: tachycardic RHYTHM: abnormal rhythm irregularly irregular HEART SOUNDS: S1 normal heart sound present and S2 normal heart sound present GI: COMMON NORMALS: Normal to inspection, nondistended, normoactive bowel sounds present, Soft to palpation and non-tender PALPATION: Yes Soft to palpation Extremity: COMMON NORMALS: no joint enlargement and no pedal edema Skin: COMMON NORMALS: no rashes or lesions noted GENERAL SKIN EXAM: no rashes or lesions noted Data 04/13/25 06:05 04/13/25 06:05 Micro: Microbiology 04/13/25 07:09 Blood Culture - Preliminary Blood SPECIMEN COLLECTED 04/13/25 07:06 Blood Culture - Preliminary Blood SPECIMEN COLLECTED A&P Assessment and plan 1. Seizure: Post-ictal state / witnessed seizure : Witnessed 1?2 minute seizure this morning; currently no convulsive activity. Minimally responsive but reacts to pain. Reviewed vitals, CBC, CMP, head CT, chest x-ray, UA, EKG, ED provider note, discussed with ED provider. - Continue current antiseizure dosing (one dose already given). Continue Keppra. Monitor for risk of worsening encephalopathy. - Consider EEG to evaluate for non-convulsive seizures. 2. Acute encephalopathy: Suspected postictal state, however, cannot exclude small ongoing focus of seizure discussed with her . She received loading dose of Keppra. EEG is requested. Possible acute metabolic encephalopathy secondary to aspiration pneumonia and hypoxia. Cannot exclude stroke given some gaze preference to the left initially in the ER. This appears to be improved now on reassessment. She is still unresponsive. On review of CT scan advanced dementia with severe atrophy of the brain. Discussed with her . She has been requiring total care, has not been communicating, not recognizing family including her . Their 55 anniversary is coming up next month, however, she has not been there to be able to help hold any sort of connection with the outside world. 3. Advanced dementia: As per above discussion, with end-stage dementia. Discussed consideration of hospice care. He states that it has not been previously discussed or considered. He would like to hear more about it. Discussed with nurse outreach case manager. He would like for his daughter to be there as well so that they may discuss it together. 4. Paroxysmal atrial fibrillation with RVR: Heart rates in the 100-teens with atrial fibrillation. Possibly triggered by seizure and aspiration pneumonia and hypoxia, I do not see history of atrial fibrillation in the past. With resolution of seizure, initiation of treatment, and improving hypoxia, heart rate is improving, currently down to 97. Monitor on telemetry. She is unable to take oral medications at current time. At current time candidate for anticoagulation. 5. Pneumonia: Pneumonia with leukocytosis, hypoxia, tachypnea of 28, initially hypoxia with saturation of 88%. Suspect aspiration pneumonia. Started on ceftriaxone and azithromycin. Plan: Possible UTI: Urine obtained with straight cath, 11-20 WBC, cannot exclude UTI. 4+ bacteria. Positive nitrate. Continue ceftriaxone. Follow-up urine culture. PDMP PDMP Reviewed: Not Reviewed Attestations Medical Necessity Statement*: Admission over 2 midnights anticipated for assessment management of seizure with ongoing acute encephalopathy, with possible component of acute metabolic encephalopathy with aspiration pneumonia, hypoxia, A-fib with RVR. and High MDM includes amount and/or complexity of data reviewed/ordered [ resulted lab(s)/test(s), ordered lab(s)/test(s), independent historian and other healthcare professional discussion] and described risk of complication, morbidity or mortality of management as documented Diagnoses Seizure R56.9 Acute encephalopathy G93.40 Advanced dementia F03.C0 Paroxysmal atrial fibrillation with RVR I48.0 Pneumonia J18.9
[2025-04-13 08:06] LABS: Glucose Urine UA Trace (Normal); Nitrate Urine Positive (Negative); Specific Gravity, Urine 1.019 (1.005-1.030)
[2025-04-13 08:08] LABS: Add Urine Microscopic? YES
[2025-04-13 08:21] LABS: UA Slide Review UA Slide Review Perf
[2025-04-13] MEDS: levETIRAcetam 1,000 MG/100 ML PREMIX 400 MG IV (08:32)
[2025-04-13] MEDS: levETIRAcetam 500 MG/100 ML PREMIX 400 MG IV (20:59)
[2025-04-14 00:04] VITALS: RESP 22; O2SAT 100
[2025-04-14] MEDS: morphine 4 mg/mL SDV 1 mL 2 MG IVP ×2 (00:04→07:21)
[2025-04-14 00:08] VITALS: BP 102/53; PULSE 81; RESP 27; TEMP 36.6; O2SAT 99
[2025-04-14 05:35] VITALS: BP 109/64; PULSE 78; RESP 19; TEMP 37.3; O2SAT 95
[2025-04-14] MEDS: cefTRIAXone 1,000 mg SDV 1000 MG IVP (06:38)
[2025-04-14] MEDS: AZITHROMYCIN ADD-Vantage 500 MG in 0.9% NaCl ADD-Vantage 250 ML 250 MG IV (06:39)
--- NOTE | 2025-04-14 07:15 | PC.NURSE ---
2340- When turning patient noticed she was grimacing and hada few tears. Notified Dr. Ramsay and requested something for pain. Received orders for morphine 2mg IVP Q4hr PRN. 0325- Lab doing rounds requested from Dr. Ramsay if draws can be held since patient is going on hospice. Received orders okay to hold morning labs.
[2025-04-14 07:21] VITALS: BP 107/57; PULSE 79; RESP 17; RESP 19; TEMP 36.6; O2SAT 96
[2025-04-14] MEDS: levETIRAcetam 500 MG/100 ML PREMIX 400 MG IV (07:25)
[2025-04-14 08:28] LABS: SARS Covid-2 Antigen Negative (Negative)
--- NOTE | 2025-04-14 11:02 | PC.NURSE ---
nurse called Rafael Tabor to give report at 1101. Phone rang and went to voicemail. Voicemail left asking them to call us back.
--- NOTE | 2025-04-14 11:05 | P.DS_ITS ---
Discharge Providers Date of Admission: 04/13/25 08:36 Date of Discharge: April 14, 2025 Attending Provider at Admission: Ian Mondragon Attending Provider at Discharge: Ian Monrdagon Primary Care Provider: Issa Clifton DO Diagnoses at Discharge Discharge Diagnosis 1. Seizure: 2. Acute encephalopathy: 3. Advanced dementia: 4. Paroxysmal atrial fibrillation with RVR: 5. Pneumonia: Reason for Visit Reason for Visit: seizure Brief History: Marah Sanchez is a 79 year old patient with a history of advanced dementia and epilepsy who was brought from a care home to the emergency department after a witnessed generalized seizure lasting 1-2 minutes earlier today. Post-ictally she appeared cyanotic and required supplemental oxygen. On arrival she was minimally responsive, reacting only to painful stimuli. Vital signs showed atrial fibrillation with a rate of 110 bpm, respiratory rate 32 breaths/min, temperature 97 ?F, and oxygen saturation 88 % on room air. A head CT showed no acute intracranial process. Chest X-ray was suggestive of pneumonia (thought likely aspiration). WBC count reported as 11.5 ?10?/L. Urinalysis specimen was obtained via in-and-out catheter and is pending. Nursing staff note that the patient is normally non-verbal but typically more responsive and ?feisty? than at present. She is non-ambulatory, has marked lower-extremity contractures, and oxygenation improves when she is positioned on her side. Code status at the care home is DNR. confirms baseline non-verbal/non-ambulatory status and is unaware of prior strokes. Hospital Course Hospital Course She received a loading dose of Keppra for possible ongoing subclinical seizure. With noted left gaze preference consideration given to CVA, difficult to examine, NIHSS as high as 29 on presentation, however, confounded by underlying severe dementia with noted severe cerebral atrophy on CT, postictal state after seizure. EEG was ordered. She was treated with ceftriaxone azithromycin for aspiration pneumonia with new hypoxia. She was monitored for atrial fibrillation and with treatment of heart rates improved and A-fib with RVR resolved. On discussion with her , she has had continued decline in quality of life with advanced dementia, noncommunicative, not recognize any family, only mumbling some things incomprehensibly. Their 55 anniversary will be coming up next month, however, she has had no awareness of the overall around her requiring total care. Given overall poor prognosis with end-stage dementia, declining quality of life, on further goals of care discussion would want to make sure that comfort is the priority and would like to enlist the help of hospice care to continue with comfort measures going forward. These arrangements are made with the assistance of case management to be continued on return to nursing facility. Physical Exam Const: ORIENTATION/CONSCIOUSNESS: Yes confused OTHER: Occasionally mumbling. Neck/C-Spine: COMMON NORMALS: no JVD Cardio: COMMON NORMALS: no JVD, regular rhythm, S1 normal heart sound present, S2 normal heart sound present and No murmurs present (Cardio) RHYTHM: regular rhythm HEART SOUNDS: S1 normal heart sound present and S2 normal heart sound present GI: COMMON NORMALS: Normal to inspection, nondistended, normoactive bowel sounds present, Soft to palpation and non-tender PALPATION: Yes Soft to palpation Extremity: COMMON NORMALS: no joint enlargement and no pedal edema Neuro: OTHER: Left gaze preference has resolved. No obvious facial droop. Skin: COMMON NORMALS: no rashes or lesions noted GENERAL SKIN EXAM: no rashes or lesions noted Discharge Data Studies Completed and Pending Completed Studies During Hospitalization Category Date Time Status CT head wo con* [id number] Stat Cat Scan 04/13/25 06:06 Completed XR chest 1V portable [id number] Stat Exams 04/13/25 06:06 Completed Pending at discharge Category Date Time Status EEG electroencephalogram Stat Exams 04/13/25 08:25 Ordered Blood Culture Stat Lab 04/13/25 07:09 Results Urine Culture Stat Lab 04/13/25 07:29 Results Radiology Impressions Chest X-Ray 04/13/25 06:06 IMPRESSION: Pneumonia. Head CT 04/13/25 06:06 IMPRESSION: No acute intracranial process. Laboratory Results WBC 11.50 10^3/uL (3.29-11.43) H 04/13/25 06:05 RBC 4.35 10^6/uL (3.85-5.65) 04/13/25 06:05 Hgb 13.90 g/dL (11.27-16.99) 04/13/25 06:05 Hct 43.6 % (36-47) 04/13/25 06:05 MCV 100.2 fl (85-98) H 04/13/25 06:05 MCH 32.0 pg (27-33) 04/13/25 06:05 MCHC 31.9 g/dL (30-55) 04/13/25 06:05 RDW 12.1 % (12.1-15.1) 04/13/25 06:05 Plt Count 179 10^3/cmm (157-399) 04/13/25 06:05 MPV 11.0 fL (7.4-10.4) H 04/13/25 06:05 Neut % (Auto) 88.4 % 04/13/25 06:05 Lymph % (Auto) 6.3 % 04/13/25 06:05 [place] % (Auto) 4.4 % 04/13/25 06:05 Eos % (Auto) 0.3 % 04/13/25 06:05 Baso % (Auto) 0.3 % 04/13/25 06:05 Neut # (Auto) 10.17 10^3/uL (1.8-7.7) H 04/13/25 06:05 Lymph # (Auto) 0.7 10^3/uL (0.8-4.8) L 04/13/25 06:05 [place] # (Auto) 0.5 10^3/uL (0.2-0.9) 04/13/25 06:05 Eos # (Auto) 0.0 10^3/uL (0.0-0.8) 04/13/25 06:05 Baso # (Auto) 0.0 10^3/uL (0.0-0.1) 04/13/25 06:05 Nucleated RBC % (auto) 0 % 04/13/25 06:05 Nucleated RBCs # 0.0 /100WBC 04/13/25 06:05 Sodium 142 mmol/L (136-145) 04/13/25 06:05 Potassium 3.8 mmol/L (3.5-5.1) 04/13/25 06:05 Chloride 103 mmol/L (98-107) 04/13/25 06:05 Carbon Dioxide 27 mmol/L (22-29) 04/13/25 06:05 Anion Gap 15.8 (5-19) 04/13/25 06:05 BUN 18 mg/dL (8-23) 04/13/25 06:05 Creatinine 0.7 mg/dL (0.5-0.9) 04/13/25 06:05 GFR Calculation Not Reportable 04/13/25 06:05 Glucose 225 mg/dL (65-115) H 04/13/25 06:05 Calculated Osmolality 303 mOsm/kg (285-295) H 04/13/25 06:05 Calcium 9.0 mg/dL (8.5-10.5) 04/13/25 06:05 Total Bilirubin 0.4 mg/dL (0.15-1.2) 04/13/25 06:05 AST 25 U/L (0-32) 04/13/25 06:05 ALT 18 U/L (0-33) 04/13/25 06:05 Alkaline Phosphatase 107 U/L (35-105) H 04/13/25 06:05 Total Protein 7.5 g/dL (6.6-8.7) 04/13/25 06:05 Albumin 3.9 g/dL (3.5-5.2) 04/13/25 06:05 Globulin 3.6 g/dL (1.3-4.6) 04/13/25 06:05 Urine Color Yellow (Yellow) 04/13/25 07: Urine Appearance Clear (CLEAR) 04/13/25 07: Urine pH 5.5 (5-7) 04/13/25 07: Ur Specific [place] 1.019 (1.005-1.030) 04/13/25 07: Urine Protein 2+ (Negative) A 04/13/25 07:29 Urine Glucose (UA) Trace (Normal) H 04/13/25 07: Urine Ketones Negative (Negative) 04/13/25 07: Urine Blood Trace (Negative) A 04/13/25 07: Urine Nitrate Positive (Negative) A 04/13/25 07: Urine Bilirubin Negative (Negative) 04/13/25 07: Urine Urobilinogen 0.2 mg/dL (Negative) 04/13/25 07: Ur Leukocyte Esterase Negative (Negative) 04/13/25 07:29 Urine RBC 0-2 /hpf (0-2) 04/13/25 07:29 Urine WBC 11-20 /hpf (0-5) H 04/13/25 07:29 Ur Squamous Epith Cells 0-5 /hpf (0-5) 04/13/25 07:29 Amorphous Sediment Not Reportable 04/13/25 07:29 Urine Bacteria 4+ /hpf (NONE) H 04/13/25 07:29 Hyaline Casts 1.65 /lpf 04/13/25 07:29 SARS-CoV-2 Ag (Rapid) Negative (Negative) 04/14/25 07:33 Vitals Last Vital Signs Temp 97.9 F 04/14/25 07:21 Pulse 79 04/14/25 07:21 Resp 19 H 04/14/25 07:21 BP 107/57 04/14/25 07:21 Pulse Ox 96 04/14/25 07:21 O2 Del Method Nasal Cannula 04/14/25 07:21 O2 Flow Rate 1 04/14/25 00:08 Discharge Plan Discharge Patient Disposition: Hospice - Medical Facility Condition: Stable Prescriptions: New cefdinir 300 mg capsule 300 mg PO BID 3 Days Qty: 6 0RF Continued acetaminophen [Tylenol] 325 mg Tablet 325 mg PO QID PRN (Reason: Pain) hydrocodone-acetaminophen 5-325 mg tablet 1 - 2 tab PO Q4H [place] Enema 19-7 gram/118 mL Enema 197 ml TX DAILY PRN (Reason: Constipation) polyethylene glycol 3350 [Miralax] 17 gram/dose Powder 17 g PO DAILY levetiracetam [Keppra] 500 mg Tablet 500 mg PO BID magnesium hydroxide [Milk of Magnesia] 400 mg/5 mL Suspension 30 ml PO DAILY PRN (Reason: Constipation) fentanyl 100 mcg/hr patch 72 hour See Rx Instructions .ROUTE .COMPLEX Rx Instructions: PLACE ONE 100MCG PATCH TOPICALLY EVERY 3DAYS ALONG WITH 25MCG PATCH =125MCG bisacodyl [Dulcolax (bisacodyl)] 10 mg Suppository 10 mg TX DAILY PRN (Reason: Constipation) fentanyl 25 mcg/hr patch 72 hour See Rx Instructions .ROUTE .COMPLEX Rx Instructions: PLACE ONE 25MCG PATCH TOPICALLY EVERY 3DAYS ALONG WITH 100MCG PATCH =125MCG Discharge Order = DC NOW: Discharge Order (Routine); Ordered 04/14/25 Ordered By: Ian Mondragon Referrals: [facility] ([facility]) [Outside] [facility] [place] [Outside] Issa Clifton DO [Primary Care Provider, Internal Medicine] - 2 weeks Discharge Diet: Advance as tolerated Patient Instructions: Cefdinir (By mouth) (Omnicef), A-fib (Atrial Fibrillation) (DC), Dementia (GEN), Hospice Care (GEN), Hypoxia (GEN), Patient Portal & Hai Instructions Activity Restrictions/Additional Instructions: Continue comfort measures with hospice care. Pleasure feeds. Reposition frequently to prevent decubitus ulcers. Discharge Attestations Time Spent in Discharge Care*: greater than 30 min Quality Metrics Clinical Quality Measures [ No reported AMI, CVA or VTE this stay] Coding Level of Care Code 42934 Total time (in minutes) for Discharge: 40 Diagnoses Seizure R56.9 Acute encephalopathy G93.40 Advanced dementia F03.C0 Paroxysmal atrial fibrillation with RVR I48.0 Pneumonia J18.9
--- NOTE | 2025-04-14 11:18 | PC.NURSE ---
Nurse attempted to call [facility] again at [phone], still no answer.
--- NOTE | 2025-04-14 11:40 | PC.NURSE ---
Nurse attempted to call [facility] third time at [phone]. [employer] transfered nurse to a different amador, still no answer. Voicemail left. Ambulance personnel is here.
--- NOTE | 2025-04-14 16:21 | PC.NURSE ---
patient was discharged out of the system before nurse could waste the morphine in the pyxis. Waste was put in the sharps box in the med room and witnessed by Meghna Singh RN
== END 2025-04-14 11:49 | disposition hospice, home (50) | DRG 177 ==
LOC: ER 07:59 → CSU 08:37
PROVIDERS: Admitting Provider Internal Medicine; Emergency Provider Emergency Medicine; PCP Internal Medicine; Visit Provider Internal Medicine
DX: J69.0 Pneumonitis due to inhalation of food and vomit (principal); G93.41 Metabolic encephalopathy; J96.01 Acute respiratory failure with hypoxia; N39.0 Urinary tract infection, site not specified; G40.409 Other generalized epilepsy and epileptic syndromes, not intractable, without status epilepticus; F03.90 Unspecified dementia, unspecified severity, without behavioral disturbance, psychotic disturbance, mood disturbance, and anxiety; I48.0 Paroxysmal atrial fibrillation; Z66 Do not resuscitate; Z79.891 Long term (current) use of opiate analgesic
CPT/HCPCS: 36415; 70450; 71045; 80053; 81001; 85025; 87040; 87077; 87086; 87186; 87426; 93005; 96365; 96375; 99285; J0456; J0696; J1953; J2270; J7050